=== PATIENT | female | born 1955 | race Caucasian/White ===

== ENCOUNTER 2022-10-29 09:10 | Inpatient (IN) ==
[2022-10-29] MEDS ORDERED: ONDANSETRON 4 MG/2 ML VIAL IV ONE (09:22)
[2022-10-29] MEDS ORDERED: LACTATED RINGERS 1,000 ML IV ONE (09:22)
[2022-10-29 09:55] LABS: POC Calcium, Ionized 0.98 (1.16-1.32); POC Creatinine 0.8 (0.6-1.2); POC Potassium 2.9 (3.3-5.1)
[2022-10-29] MEDS ORDERED: METOCLOPRAMIDE 10 MG/2 ML VIAL IV ONE (10:10)
[2022-10-29] MEDS ORDERED: diphenhydrAMINE 50 MG/ML VIAL IV ONE (10:10)
--- NOTE | 2022-10-29 10:12 | Emergency Department Note ---
HPI General Chief complaint: Nausea/Vomiting/Diarrhea Stated complaint: N, V Time Seen by Provider: 10/29/22 09:13 Source: patient and family Mode of arrival: ambulatory Limitations: no limitations History of Present Illness HPI Narrative: Narrative: Patient presents to the emergency department with nausea and vomiting she states her symptoms have been going on for 3 to 4 days. She was actually seen at [facility] 4 days ago for a cough she was found to have a urinary tract infection and bronchitis she was started on prednisone, Macrobid and azithromycin. Patient states today she began nauseous she was unable to keep down her antibiotics. She states that she has been trying to sip on water throughout her illness. She does have some associated diffuse abdominal pain along with headache as well. Her symptoms did start about 10 days ago she thought it was just a viral when it had not improved she went to the [facility] the other day. She has not been having any fevers. Related Data Home Medications Medication Instructions Recorded Confirmed aspirin 325 mg tablet 325 mg PO QDAY 10/25/22 10/29/22 atenolol 50 mg tablet 50 mg PO QDAY 10/25/22 10/29/22 atorvastatin 40 mg tablet 40 mg PO QHS 10/25/22 10/29/22 cholecalciferol (vitamin D3) 50 50 mcg PO QDAY 10/25/22 10/29/22 mcg (2,000 unit) capsule losartan 100 mg tablet 100 mg PO QDAY 10/25/22 10/29/22 multivitamin with minerals-folic 2 tab PO QDAY 10/25/22 10/29/22 acid 200 mcg chewable tablet (Women's Multivitamin Gummies) omega 7-hwt-ecr-fish oil 60 mg-90 1 cap PO QDAY 10/25/22 10/29/22 mg-500 mg capsule (Fish Oil) triamterene 37.5 1 tab PO QDAY 10/25/22 10/29/22 mg-hydrochlorothiazide 25 mg tablet Lactobacillus 1 cap PO QAM 10/29/22 10/29/22 acidophilus-Bifidobac.animalis 2.5 billion cell capsule (Daily Probiotic) nitrofurantoin 1 cap PO BID 10/29/22 10/29/22 monohydrate/macrocrystals 100 mg capsule Previous Rx's Medication Instructions Recorded azithromycin 250 mg tablet See Rx Instructions PO Q24H #6 tabs 10/25/22 nitrofurantoin 1 cap PO Q12H IFAbx Urinary Tract 10/25/22 monohydrate/macrocrystals 100 mg Infection 5 days #10 caps capsule (Macrobid) prednisone 10 mg tablet See Rx Instructions PO ONCE #15 10/25/22 tabs Allergies Allergy/AdvReac Type Severity Reaction Status Date / Time No Known Drug Allergies Allergy Unverified 10/25/22 15:01 Review of Systems ROS ROS Narrative: Narrative: All systems ED: reviewed and negative except as stated. PFS Narrative Patient History Narrative: Narrative: Medical/Surgical/Family History All Active Problems (Updated 10/29/22 @ 13:38 by Santiago Ledezma MD) Hyponatremia (Chronic) Mixed dyslipidemia (Acute) Essential hypertension (Acute) UTI (urinary tract infection) (Acute) Acute bronchitis (Acute) Hypokalemia (Acute) Acute hyponatremia (Acute) Social History Smoking Status: Never smoker Exam Narrative Narrative: Narrative: Vital signs noted General: Awake. Alert. No distress. HEENT: NCAT Neck: Supple, trachea midline Cardiovascular: RRR. No murmur. No rubs. No gallops. Respiratory: No respiratory distress. Breath sounds equal. Lungs clear. Gastrointestinal: Soft. Mild tenderness to diffuse palpation Musculoskeletal: No pain. No soft tissue swelling. Good ROM. No signs injury Skin: Warm. Dry. No rash Neurologic: Alert and oriented x3 moves all extremities equally and fully, speech is fluent face is symmetric General Limitations: no limitations Course Vital Signs Vital signs: Vital Signs Temperature 96.6 F L 10/29/22 09:12 Pulse Rate 57 L 10/29/22 09:12 Respiratory Rate 18 10/29/22 09:12 Blood Pressure 139/65 10/29/22 09:12 Pulse Oximetry (%) 95 10/29/22 09:12 Oxygen Delivery Method Room Air 10/29/22 09:12 Temperature 97.8 F 10/30/22 04:18 Pulse Rate 55 L 10/30/22 05:56 Respiratory Rate 18 10/30/22 04:18 Blood Pressure 151/58 10/30/22 05:56 Pulse Oximetry (%) 95 10/30/22 05:56 Oxygen Delivery Method Room Air 10/30/22 05:56 MDM MDM Narrative Medical decision making narrative: Narrative: Patient presents to the emergency department with abdominal pain nausea vomiting continued cough. She was seen at [facility] 4 days ago she was started on prednisone, Macrobid and Augmentin. Patient's initial labs are concerning for hyponatremia of 112 in the setting of a normal blood glucose. I did have this rechecked to make sure there was not lab abnormality. Patient was given Zofran for her nausea, along with Reglan and Benadryl. Patient was given 1 L of NS. Patient's potassium is low as well is 3.0. Chloride is 74. Patient does not give the history that she has been vomiting enough to cause the significant electrolyte derangements. On exam she overall looks euvolemic. She is on hydrochlorothiazide-triamterene. This does not sound like polydipsia could be SIADH in the setting of recent viral infection? She denies significant alcohol use. I have added on serum osmolality and urine electrolytes and osmolality as well. Ionized calcium is also low 1.06. Chest x-ray per my interpretation does not show any acute cardiopulmonary process. Urinalysis does appear that infection is clearing. Patient will be admitted to the hospitalist for hypona tremia. Lab Data 10/30/22 05:51 10/30/22 05:51 Labs: Lab Results 10/29/22 10/29/22 10/29/22 Range/Units 09:20 09:20 09:45 WBC (4.5-11.0) K/mcL RBC (3.59-5.38) M/mcL Hgb (11.2-15.7) g/dL Hct (34.1-44.9) % POC Hct (36-48) MCV (80.0-100.0) fL MCH (26.0-34.0) pg MCHC (31.0-36.0) g/dL RDW (11.5-14.5) % Plt Count (140-440) K/mcL MPV (8.8-12.5) fL Immature Gran % (Auto) (0.0-0.5) % Neut % (Auto) (38.0-78.0) % Lymph % (Auto) (15.5-49.0) % [place] % (Auto) (1.0-12.0) % Eos % (Auto) (0.0-7.0) % Baso % (Auto) (0.0-2.0) % Lymph # (Auto) (1.50-4.80) K/mcL [place] # (Auto) (0.10-0.90) K/mcL Eos # (Auto) (0.00-0.70) K/mcL Baso # (Auto) (0.00-0.30) K/mcL Immature Gran # (0.00-0.05) K/mcl Absolute Neutrophils (1.80-8.00) K/mcL POC Sodium (133-145) Sodium (133-145) mmol/L POC Potassium (3.3-5.1) POC Chloride (96-108) POC Total CO2 (22-30) POC BUN (6-20) POC Creatinine (0.6-1.2) POC Glucose (70-105) Osmolality (280-300) mOSM/kg POC WB Ioniz Calcium (1.16-1.32) Magnesium (1.6-2.5) mg/dL Lipase 121 H (7-60) U/L Urine Color Yellow Urine Appearance Hazy A (Clear) Urine pH 5.0 (5.0-9.0) Ur Specific [place] 1.024 (1.000-1.035) Urine Protein >=500 A (Negative) mg/dL Urine Glucose (UA) Negative (Negative) mg/dL Urine Ketones Negative (Negative) mg/dL Urine Occult Blood 0.03 (Negative) mg/dL Urine Nitrate Negative (Negative) Urine Bilirubin Negative (Negative) mg/dL Urine Urobilinogen Negative mg/dL Ur Leukocyte Esterase Negative (Negative) /uL Urine RBC 7 H (0-3) /hpf Urine WBC 10 H (0-4) /hpf Ur Squamous Epith Cells 2 (0-4) /hpf Ur Transition Epith Cell < 1 (0-2) /hpf Urine Bacteria Few A (0) /hpf Hyaline Casts 25 H (0-2) /lph Urine Mucus Many A (None) /hpf Ur Culture Indicated? yes Urine Osmolality 551 (80-1000) mOSM/kg Ur Random Sodium 15 mmol/L 10/29/22 10/29/22 10/29/22 Range/Units 09:45 09:51 10:24 WBC 11.7 H (4.5-11.0) K/mcL RBC 4.61 (3.59-5.38) M/mcL Hgb 14.7 (11.2-15.7) g/dL Hct 38.6 (34.1-44.9) % POC Hct 44.0 (36-48) MCV 83.7 (80.0-100.0) fL MCH 31.9 (26.0-34.0) pg MCHC 35.0 (31.0-36.0) g/dL RDW 11.6 (11.5-14.5) % Plt Count 253 (140-440) K/mcL MPV 10.7 (8.8-12.5) fL Immature Gran % (Auto) 0.7 H (0.0-0.5) % Neut % (Auto) 70.4 (38.0-78.0) % Lymph % (Auto) 14.6 L (15.5-49.0) % [place] % (Auto) 13.9 H (1.0-12.0) % Eos % (Auto) 0.3 (0.0-7.0) % Baso % (Auto) 0.1 (0.0-2.0) % Lymph # (Auto) 1.71 (1.50-4.80) K/mcL [place] # (Auto) 1.63 H (0.10-0.90) K/mcL Eos # (Auto) 0.04 (0.00-0.70) K/mcL Baso # (Auto) 0.01 (0.00-0.30) K/mcL Immature Gran # 0.08 H (0.00-0.05) K/mcl Absolute Neutrophils 8.23 H (1.80-8.00) K/mcL POC Sodium 112 L* (133-145) Sodium 107 L* (133-145) mmol/L POC Potassium 2.9 L* (3.3-5.1) POC Chloride 75 L (96-108) POC Total CO2 26.0 (22-30) POC BUN 16 (6-20) POC Creatinine 0.8 (0.6-1.2) POC Glucose 124 H (70-105) Osmolality (280-300) mOSM/kg POC WB Ioniz Calcium 0.98 L (1.16-1.32) Magnesium (1.6-2.5) mg/dL Lipase (7-60) U/L Urine Color Urine Appearance (Clear) Urine pH (5.0-9.0) Ur Specific [place] (1.000-1.035) Urine Protein (Negative) mg/dL Urine Glucose (UA) (Negative) mg/dL Urine Ketones (Negative) mg/dL Urine Occult Blood (Negative) mg/dL Urine Nitrate (Negative) Urine Bilirubin (Negative) mg/dL Urine Urobilinogen mg/dL Ur Leukocyte Esterase (Negative) /uL Urine RBC (0-3) /hpf Urine WBC (0-4) /hpf Ur Squamous Epith Cells (0-4) /hpf Ur Transition Epith Cell (0-2) /hpf Urine Bacteria (0) /hpf Hyaline Casts (0-2) /lph Urine Mucus (None) /hpf Ur Culture Indicated? Urine Osmolality (80-1000) mOSM/kg Ur Random Sodium mmol/L 10/29/22 10/29/22 10/29/22 Range/Units 10:27 10:28 10:28 WBC (4.5-11.0) K/mcL RBC (3.59-5.38) M/mcL Hgb (11.2-15.7) g/dL Hct (34.1-44.9) % POC Hct 44.0 (36-48) MCV (80.0-100.0) fL MCH (26.0-34.0) pg MCHC (31.0-36.0) g/dL RDW (11.5-14.5) % Plt Count (140-440) K/mcL MPV (8.8-12.5) fL Immature Gran % (Auto) (0.0-0.5) % Neut % (Auto) (38.0-78.0) % Lymph % (Auto) (15.5-49.0) % [place] % (Auto) (1.0-12.0) % Eos % (Auto) (0.0-7.0) % Baso % (Auto) (0.0-2.0) % Lymph # (Auto) (1.50-4.80) K/mcL [place] # (Auto) (0.10-0.90) K/mcL Eos # (Auto) (0.00-0.70) K/mcL Baso # (Auto) (0.00-0.30) K/mcL Immature Gran # (0.00-0.05) K/mcl Absolute Neutrophils (1.80-8.00) K/mcL POC Sodium 111 L* (133-145) Sodium (133-145) mmol/L POC Potassium 3.0 L (3.3-5.1) POC Chloride 74 L (96-108) POC Total CO2 26.0 (22-30) POC BUN 15 (6-20) POC Creatinine 0.8 (0.6-1.2) POC Glucose 121 H (70-105) Osmolality 233 L (280-300) mOSM/kg POC WB Ioniz Calcium 1.06 L (1.16-1.32) Magnesium 1.9 (1.6-2.5) mg/dL Lipase (7-60) U/L Urine Color Urine Appearance (Clear) Urine pH (5.0-9.0) Ur Specific [place] (1.000-1.035) Urine Protein (Negative) mg/dL Urine Glucose (UA) (Negative) mg/dL Urine Ketones (Negative) mg/dL Urine Occult Blood (Negative) mg/dL Urine Nitrate (Negative) Urine Bilirubin (Negative) mg/dL Urine Urobilinogen mg/dL Ur Leukocyte Esterase (Negative) /uL Urine RBC (0-3) /hpf Urine WBC (0-4) /hpf Ur Squamous Epith Cells (0-4) /hpf Ur Transition Epith Cell (0-2) /hpf Urine Bacteria (0) /hpf Hyaline Casts (0-2) /lph Urine Mucus (None) /hpf Ur Culture Indicated? Urine Osmolality (80-1000) mOSM/kg Ur Random Sodium mmol/L CC TIME Critical Care Time Critical Care Time: Yes Total Critical Care Time: 35 Discharge Plan Patient/Caregiver Discharge Instructions Pt seen by SENIOR COURTROOM CLERK/PA only: No Clinical Impression: Acute hyponatremia Patient Disposition: Xfer As Inpt ([facility]) Discharge Date/Time: 10/29/22 13:35
[2022-10-29] MEDS ORDERED: 0.9 % SODIUM CHLORIDE 1,000 ML IV ONE (10:29)
[2022-10-29 10:32] LABS: POC Calcium, Ionized 1.06 (1.16-1.32); POC Creatinine 0.8 (0.6-1.2)
[2022-10-29 10:54] LABS: Appearance,Urine HAZY (Clear); Bacteria,Urine FEW /hpf (0); Bilirubin,Urine Negative (Negative); Color,Urine YELLOW; Culture Indicated,Urine yes; Glucose,Urine (UA) Negative (Negative); Ketones,Urine Negative (Negative); Leukocyte Esterase,Urine Negative /uL (Negative); Mucus,Urine MANY /hpf; Nitrate,Urine Negative (Negative); Protein,Urine >=500 mg/dL (Negative); Specific Gravity,Urine 1.024 (1.000-1.035); Urine Blood 0.03 mg/dL (Negative); Urine Hyaline Cast 25 /lph (0-2); Urine RBC 7 /hpf (0-3); Urine Squamous Epithelial Cell 2 /hpf (0-4); Urine Transitional Epi Cells < 1 /hpf (0-2); Urine WBC 10 /hpf (0-4); Urobilinogen,Urine Negative
[2022-10-29 11:47] LABS: Sodium, Urine Random 15 mmol/L
--- NOTE | 2022-10-29 12:04 | XRay Report ---
CLINICAL INFORMATION: Worsening cough COMPARISON: 10/25/2022 TECHNIQUE: Portable FINDINGS: The heart size, mediastinum and pulmonary vessels are unremarkable. Lung volumes are mildly elevated is minimal wall thickening of the bronchi suggesting bronchitis. Minor bibasilar atelectasis noted.. There are no effusions. The bones and soft tissues are within normal limits. IMPRESSION: Findings compatible with bronchitis. Minor bibasilar atelectasis Interpreted and Authenticated by: Mert Patricia 10/29/22
[2022-10-29 12:05] LABS: Basophils # (Auto) 0.01 K/mcL (0.00-0.30); Basophils % (Auto) 0.1 % (0.0-2.0); Eosinophils # (Auto) 0.04 K/mcL (0.00-0.70); Eosinophils % (Auto) 0.3 % (0.0-7.0); Hematocrit 38.6 % (34.1-44.9); Hemoglobin 14.7 g/dL (11.2-15.7); Lymphocytes # (Auto) 1.71 K/mcL (1.50-4.80); Lymphocytes % (Auto) 14.6 % (15.5-49.0); Mean Cell Volume 83.7 fL (80.0-100.0); Mean Platelet Volume 10.7 fL (8.8-12.5); Monocytes # (Auto) 1.63 K/mcL (0.10-0.90); Monocytes % (Auto) 13.9 % (1.0-12.0); Neutrophils % (Auto) 70.4 % (38.0-78.0); Platelet Count 253 K/mcL (140-440); RBC 4.61 M/mcL (3.59-5.38); Red Cell Distribution Width 11.6 % (11.5-14.5); WBC 11.7 K/mcL (4.5-11.0)
[2022-10-29] MEDS ORDERED: PROCHLORPERAZINE 10 MG/2 ML VIAL IV PRN (12:05)
[2022-10-29] MEDS ORDERED: hydrALAZINE 20 MG/ML VIAL IV PRN (12:05)
[2022-10-29] MEDS ORDERED: LOPERAMIDE 2 MG CAPSULE PO PRN (12:06)
[2022-10-29] MEDS ORDERED: POTASSIUM CHLORIDE 20 MEQ in DEXTROSE 5% IN WATER 250 ML IV SCH (12:06)
[2022-10-29 12:10] LABS: Osmolality,Urine 551 mOSM/kg (80-1000)
--- NOTE | 2022-10-29 12:15 | Internal Med History&Physical ---
HPI History of Present Illness Patient information: Note initiated : 10/29/22 at 12:06 pm Service Date, if different from initiated Date: [] Patient: Joaquina Paredes a 66 y/o F admitted on for N, V. Chief Complaint: [nausea, vomiting, general weakness] Chief complaint: nausea, vomiting, general weakness History of present illness: Ms. Paredes is a 66 year old F history of essential hypertensions, dyslipidemia, recently diagnosed urinary tract infections and bronchitis, presenting with 4- day history of nausea vomiting and general weakness. She was recently being diagnosed with urinary tract infections and bronchitis at the urgent care center and was being prescribed with Macrobid, prednisone, and azithromycin respectively. 4 days ago, she started to experience nausea, vomiting, and general body weakness. Of note, her GI symptoms of nausea vomiting onset was prior to the start of the antibiotics. She has been taking triamterene/hydrochlorothiazide for blood pressure control and she has been taking it for long time and there is no recent dosage changes. Vital signs at ED presentations within normal limits. Labs significant for serum sodium level 111, and serum potassium level 3.0. Magnesium level, serum and urine osmolality, and urine sodium level pending. Urinalysis negative leukocyte esterase and negative nitrates. Chest x-ray results pending. Admission request is called for symptomatic hyponatremia and hypokalemia. Constitutional Constitutional: Present excessive sweating and weakness; Absent chills, fatigue or fever(s) EENT Eyes: Absent blurry vision, change in vision, loss of vision or other visual disturbances Ears: Absent decreased hearing or tinnitus Nose, mouth and throat: Absent abnormal hearing, dry mouth, headache(s), nasal congestion or sore throat Cardiovascular Cardiovascular: Absent chest pain, chest pain at rest, edema, irregular heart rhythm or palpatations Respiratory Respiratory: Present cough; Absent dyspnea, wheezing or excessive phlegm production Gastrointestinal Gastrointestinal: Present nausea and vomiting; Absent abdominal pain, constipation or diarrhea Musculoskeletal Musculoskeletal: Absent back pain, deformity, limited range of motion, muscle cramps, muscle weakness or numbness Integumentary Integumentary: Absent lesions, rash or wounds Neurological Neurological: Absent focal weakness, headache(s) or numbness Psychiatric Psychiatric: Absent anxiety, depression or hallucinations PFSH PFSH All Active Problems (Updated 10/29/22 @ 12:13 by Richard Gaytan MD) Mixed dyslipidemia (Acute) Essential hypertension (Acute) UTI (urinary tract infection) (Acute) Acute bronchitis (Acute) Hypokalemia (Acute) Acute hyponatremia (Acute) Social History smoking status: Never smoker MEDS/ALLERGIES Home Medications and Allergies Home Medications Medication Instructions Recorded Confirmed Type aspirin 325 mg tablet 325 mg PO QDAY 10/25/22 10/25/22 History atenolol 50 mg tablet 50 mg PO QDAY 10/25/22 10/25/22 History atorvastatin 40 mg tablet 40 mg PO QDAY 10/25/22 10/25/22 History azithromycin 250 mg tablet See Rx Instructions PO Q24H #6 tabs 10/25/22 10/25/22 Rx cholecalciferol (vitamin D3) 50 50 mcg PO QDAY 10/25/22 10/25/22 History mcg (2,000 unit) capsule losartan 100 mg tablet 100 mg PO QDAY 10/25/22 10/25/22 History multivitamin with minerals-folic tab PO QDAY 10/25/22 10/25/22 History acid 200 mcg chewable tablet (Women's Multivitamin Gummies) nitrofurantoin 1 cap PO Q12H IFAbx Urinary Tract 10/25/22 10/25/22 Rx monohydrate/macrocrystals 100 mg Infection 5 days #10 caps capsule (Macrobid) omega 5-vvs-vby-fish oil 60 mg-90 1 cap PO QDAY 10/25/22 10/25/22 History mg-500 mg capsule (Fish Oil) prednisone 10 mg tablet See Rx Instructions PO ONCE #15 10/25/22 10/25/22 Rx tabs triamterene 37.5 1 tab PO QDAY 10/25/22 10/25/22 History mg-hydrochlorothiazide 25 mg tablet Allergies Allergy/AdvReac Type Severity Reaction Status Date / Time No Known Drug Allergies Allergy Unverified 10/25/22 15:01 EXAM Constitutional Vitals: Temp Pulse Resp BP Pulse Ox O2 Del Method 35.9 C L 60 18 149/68 97 Room Air 10/29/22 09:12 10/29/22 11:37 10/29/22 09:12 10/29/22 11:12 10/29/22 11:37 04/26/23 09:12 General appearance: cooperative and no acute distress Head Head exam: Present atraumatic and normocephalic Eye Eye exam: Present EOMI and PERRL ENT ENT exam: Present mucous membranes moist, normal exam and normal external ear exam Neck Neck exam: Present normal inspection; Absent lymphadenopathy, tenderness or thyromegaly Respiratory Respiratory exam: Absent accessory muscle use, respiratory distress or wheezes Cardiovascular Cardiovascular exam: Present normal rate and rhythm; Absent JVD GI/Abdominal GI/Abdominal exam: Present normal bowel sounds and soft; Absent organomegaly or tenderness Extremities Exam Extremities exam: Present full ROM, normal capillary refill and normal inspection; Absent tenderness Neurological Exam Neurological exam: Present alert, CN II-XII intact and oriented X3; Absent motor sensory deficit Psychiatric Psychiatric exam: Present normal affect and normal mood; Absent anxious or depressed Skin Skin exam: Present dry and intact DATA Data Completed and Pending Labs: Labs from last 24 hours 10/29/22 10/29/22 10/29/22 10:28 10:28 10:27 WBC RBC Hgb Hct POC Hct 44.0 MCV MCH MCHC RDW Plt Count MPV Immature Gran % (Auto) Neut % (Auto) Lymph % (Auto) [place] % (Auto) Eos % (Auto) Baso % (Auto) Lymph # (Auto) [place] # (Auto) Eos # (Auto) Baso # (Auto) Immature Gran # Absolute Neutrophils POC Sodium 111 L* Sodium POC Potassium 3.0 L POC Chloride 74 L POC Total CO2 26.0 POC BUN 15 POC Creatinine 0.8 POC Glucose 121 H Osmolality Pending POC WB Ioniz Calcium 1.06 L Magnesium Pending Lipase Urine Color Urine Appearance Urine pH Ur Specific [place] Urine Protein Urine Glucose (UA) Urine Ketones Urine Occult Blood Urine Nitrate Urine Bilirubin Urine Urobilinogen Ur Leukocyte Esterase Urine RBC Urine WBC Ur Squamous Epith Cells Ur Transition Epith Cell Urine Bacteria Hyaline Casts Urine Mucus Ur Culture Indicated? Urine Osmolality Ur Random Sodium 10/29/22 10/29/22 10/29/22 10:24 09:51 09:45 WBC 11.7 H RBC 4.61 Hgb 14.7 Hct 38.6 POC Hct 44.0 MCV 83.7 MCH 31.9 MCHC 35.0 RDW 11.6 Plt Count 253 MPV 10.7 Immature Gran % (Auto) 0.7 H Neut % (Auto) 70.4 Lymph % (Auto) 14.6 L [place] % (Auto) 13.9 H Eos % (Auto) 0.3 Baso % (Auto) 0.1 Lymph # (Auto) 1.71 [place] # (Auto) 1.63 H Eos # (Auto) 0.04 Baso # (Auto) 0.01 Immature Gran # 0.08 H Absolute Neutrophils 8.23 H POC Sodium 112 L* Sodium Pending POC Potassium 2.9 L* POC Chloride 75 L POC Total CO2 26.0 POC BUN 16 POC Creatinine 0.8 POC Glucose 124 H Osmolality POC WB Ioniz Calcium 0.98 L Magnesium Lipase Urine Color Urine Appearance Urine pH Ur Specific [place] Urine Protein Urine Glucose (UA) Urine Ketones Urine Occult Blood Urine Nitrate Urine Bilirubin Urine Urobilinogen Ur Leukocyte Esterase Urine RBC Urine WBC Ur Squamous Epith Cells Ur Transition Epith Cell Urine Bacteria Hyaline Casts Urine Mucus Ur Culture Indicated? Urine Osmolality Ur Random Sodium 10/29/22 10/29/22 10/29/22 09:45 09:20 09:20 WBC RBC Hgb Hct POC Hct MCV MCH MCHC RDW Plt Count MPV Immature Gran % (Auto) Neut % (Auto) Lymph % (Auto) [place] % (Auto) Eos % (Auto) Baso % (Auto) Lymph # (Auto) [place] # (Auto) Eos # (Auto) Baso # (Auto) Immature Gran # Absolute Neutrophils POC Sodium Sodium POC Potassium POC Chloride POC Total CO2 POC BUN POC Creatinine POC Glucose Osmolality POC WB Ioniz Calcium Magnesium Lipase 121 H Urine Color Yellow Urine Appearance Hazy A Urine pH 5.0 Ur Specific [place] 1.024 Urine Protein >=500 A Urine Glucose (UA) Negative Urine Ketones Negative Urine Occult Blood 0.03 Urine Nitrate Negative Urine Bilirubin Negative Urine Urobilinogen Negative Ur Leukocyte Esterase Negative Urine RBC 7 H Urine WBC 10 H Ur Squamous Epith Cells 2 Ur Transition Epith Cell < 1 Urine Bacteria Few A Hyaline Casts 25 H Urine Mucus Many A Ur Culture Indicated? yes Urine Osmolality Pending Ur Random Sodium 15 A/P Assessment and plan (1) Acute hyponatremia: Status: Acute (2) Hypokalemia: Status: Acute (3) Acute bronchitis: Status: Acute (4) UTI (urinary tract infection): Status: Acute (5) Essential hypertension: Status: Acute (6) Mixed dyslipidemia: Status: Acute Narrative A/P Narrative: Assessment and Plans: 1. Symptomatic hyponatremia, likely acute: Inpatient ICU with telemetry Consult Dr. Ledezma recs. appreciated Stop Triamterene/HCTZ Zofran Reglan Compazine Imodium s/p 1L NS bolus given in the ED, to be followed by NS@75cc/hr BMP every 6 hours, goals of corrections 8-10 points in the first 24 hours to avoid overcorrection's with associated [employer]INE consequences suggest central pontine myelinolysis Serum and urine osmolality Urine sodium TSH Cortisol, random and AM 2. Hypokalemia: Potassium chloride IV rider Serial BMP to trend serum potassium level and will repeat replacement as needed Also check serum magnesium level and will be placed if indicated 3. h/o recent UTI: Will finish nitrofurantoin 4. History of recent acute bronchitis: Will finish azithromycin and prednisone 5. Essential hypertensions: Stop Triamterene/HCTZ Continue Atenolol Continue Losartan Hydralazine 10mg IV q4-6hr PRN SBP>=180 and/or DBP>=110mmHg 6. Mixed dyslipidemia: Continue statin therapy GI ppx: not currently indicated DVT ppx: Lovenox Code status: Full Prognosis: guarded Disposition: inpatient ICU Critical Care Time: 60min Time Spent With Patient Time: Total time spent is greater than 50% in coordination of care (as documented) at patient's floor/unit and/or counseling patient: Initial: Total time with patient: 55 - 74 minutes Critical Care Time: Yes Total Critical Care Time: 60
[2022-10-29] MEDS ORDERED: SODIUM CHLORIDE 1 GM TABLET PO SCH (13:34)
--- NOTE | 2022-10-29 13:41 | Nephrology Consult Note ---
HPI Date of Consult Consult Date: 10/29/22 Requesting physician: Richard Gaytan Primary Care Provider: Jessica Lau Consult Narrative Chief complaint: Nausea Reason for consult: Hyponatremia History of present illness: Joaquina Paredes is a 66-year-old female with hypertension presented to ED for nausea and vomiting on 10/29/22. She was in her usual state of health until September 2022 when she started to have a cough and sputum. She was seen in urgent care on 10/25/22. She was diagnosed with bronchitis and UTI. She was prescribed Nitrofurantoin and Azithromycin. She did not have blood work. Her symptoms did not improve, she had nausea and vomiting and was presented to ED. In ED, her workup was significant for hyponatremia. She received 1 L NS and 1 L LR. Admission requested. cc:: CC: Constitutional Constitutional: Present headache(s) and lethargy EENT Nose, mouth and throat: Absent nasal congestion or sore throat Cardiovascular Cardiovascular: Absent chest pain or palpatations Respiratory Respiratory: Present cough; Absent wheezing Gastrointestinal Gastrointestinal: Present nausea and vomiting Genitourinary Genitourinary: Absent dysuria or hematuria Integumentary Integumentary: Absent rash or wounds Neurological Neurological: Present headache(s); Absent confusion Psychiatric Psychiatric: Absent anxiety or panic attacks Hematologic/Lymphatic Hematologic/Lymphatic: Absent easy bleeding or easy bruising Allergic/Immunologic Allergic/Immunologic: Absent tongue swelling or uticaria PFSH PFSH All Active Problems (Updated 10/29/22 @ 13:38 by Santiago Ledezma MD) Hyponatremia (Chronic) Mixed dyslipidemia (Acute) Essential hypertension (Acute) UTI (urinary tract infection) (Acute) Acute bronchitis (Acute) Hypokalemia (Acute) Acute hyponatremia (Acute) Social History smoking status: Never smoker MEDS/ALLERGIES Home Medications and Allergies Home Medications Medication Instructions Recorded Confirmed Type aspirin 325 mg tablet 325 mg PO QDAY 10/25/22 10/25/22 History atenolol 50 mg tablet 50 mg PO QDAY 10/25/22 10/25/22 History atorvastatin 40 mg tablet 40 mg PO QDAY 10/25/22 10/25/22 History azithromycin 250 mg tablet See Rx Instructions PO Q24H #6 tabs 10/25/22 10/25/22 Rx cholecalciferol (vitamin D3) 50 50 mcg PO QDAY 10/25/22 10/25/22 History mcg (2,000 unit) capsule losartan 100 mg tablet 100 mg PO QDAY 10/25/22 10/25/22 History multivitamin with minerals-folic tab PO QDAY 10/25/22 10/25/22 History acid 200 mcg chewable tablet (Women's Multivitamin Gummies) nitrofurantoin 1 cap PO Q12H IFAbx Urinary Tract 10/25/22 10/25/22 Rx monohydrate/macrocrystals 100 mg Infection 5 days #10 caps capsule (Macrobid) omega 2-beb-ipl-fish oil 60 mg-90 1 cap PO QDAY 10/25/22 10/25/22 History mg-500 mg capsule (Fish Oil) prednisone 10 mg tablet See Rx Instructions PO ONCE #15 10/25/22 10/25/22 Rx tabs triamterene 37.5 1 tab PO QDAY 10/25/22 10/25/22 History mg-hydrochlorothiazide 25 mg tablet Allergies Allergy/AdvReac Type Severity Reaction Status Date / Time No Known Drug Allergies Allergy Unverified 10/25/22 15:01 Physical Examination Vital Signs Vital signs: Temp Pulse Resp BP Pulse Ox O2 Del Method 96.6 F L 64 18 158/78 98 Room Air 10/29/22 09:12 10/29/22 12:21 10/29/22 09:12 10/29/22 12:21 10/29/22 12:21 10/29/22 09:12 General Appearance General appearance: well-developed, well-nourished and appears started age EENT EENT: mucous membranes moist Neck Neck: no JVD Respiratory Respiratory: clear Cardiovascular Cardiology: no edema Gastrointestinal Gastrointestinal: no tenderness Integumentary Integumentary: warm and dry Neurologic Neurologic: no focal deficit and alert and oriented x3 Musculoskeletal Musculoskeletal: no deformities Psychiatric Psychiatric: mood/affect appropriate and cooperative Results Lab Results 10/29/22 09:45 10/29/22 10:24 Lab results: Most recent lab results Magnesium 1.9 mg/dL (1.6-2.5) 10/29/22 10:27 A/P Assessment and plan (1) Hyponatremia: Assessment and plan: Joaquina Paredes is a 66-year-old female with hypertension presented to ED for nausea and vomiting on 10/29/22. She was in her usual state of health until September 2022 when she started to have a cough and sputum. She was seen in urgent care on 10/25/22. She was diagnosed with bronchitis and UTI. She was prescribed Nitrofurantoin and Azithromycin. She did not have blood work. Her symptoms did not improve, she had nausea and vomiting and was presented to ED. In ED, her workup was significant for hyponatremia. She received 1 L NS and 1 L LR. Admission requested. Nephrology consultation was requested for hyponatremia. Hyponatremia, present on arrival. It is hypoosmolar, euvolemic, severe (<120), likely chronic (>48 hours), symptomatic (nausea, vomiting, headache, but no confusion, delirium or seizures), associated with gait instability, but no falls, associated with medications (thiazide diuretic), not consistent with SIADH (urine sodium < 40). Work up: Labs on 10/29/22: Serum osmolality, serum sodium, urine osmolality 551, urine sodium 15. Urinalysis on 10/29/22: Yellow, hazy, pH 5.0, SG 1.024, protein >500, blood 0.03, leukocyte esterase negative, urine culture pending. CXR on 10/29/22: Findings compatible with bronchitis. Minor bibasilar atelectasis. Progress: Serum Sodium: 10/29/22 10:24: 107 RECOMMENDATIONS AND PLAN: Hold triamterene 37.5 mg-hydrochlorothiazide 25 mg. Sodium Chloride 1 gram by mouth twice daily, first dose now. Hypertonic (3% saline) recommended only for acute (<48 hours), severe, symptomatic patients. Monitor serum sodium frequently. Target serum sodium elevation: <4-6 mEq/L/24 hours. Goal serum sodium of >130 mEq/L. Status: Chronic Time Spent With Patient Time: Total time spent is greater than 50% in coordination of care (as documented) at patient's floor/unit and/or counseling patient:
[2022-10-29] MEDS ORDERED: 0.9 % SODIUM CHLORIDE 1,000 ML IV SCH (13:51)
[2022-10-29] MEDS ORDERED: ONDANSETRON 4 MG/2 ML VIAL IV PRN (13:51)
[2022-10-29] MEDS ORDERED: IPRATROPIUM/ALBUTEROL 3 ML AMPUL.NEB NEB PRN (13:51)
[2022-10-29] MEDS ORDERED: METOCLOPRAMIDE 10 MG/2 ML VIAL IV PRN (13:51)
[2022-10-29] MEDS: 0.9 % SODIUM CHLORIDE 10 ML SYRINGE IV SCH ×2 (13:57→20:34)
[2022-10-29] MEDS ORDERED: POTASSIUM CHLORIDE 20 MEQ TABLET PO ONE (14:42)
[2022-10-29 15:20] LABS: Thyroid Stimulating Hormone 3.68 uIU/mL (0.27-5.01)
[2022-10-29] MEDS ORDERED: SODIUM CHLORIDE 1 GM TABLET PO ONE (15:26)
[2022-10-29] MEDS ORDERED: predniSONE 10 MG TABLET PO SCH (16:15)
[2022-10-29] MEDS ORDERED: predniSONE 20 MG TABLET PO ONE (17:30)
[2022-10-29] MEDS: AZITHROMYCIN 250 MG TABLET PO SCH (17:34)
[2022-10-29 19:54] LABS: Blood Urea Nitrogen 13 mg/dL (8-23); Calcium 8.6 mg/dL (8.6-10.4); Carbon Dioxide 26 mmol/L (22-30); Chloride 77 mmol/L (96-108); Glomerular Filtration Rate 75; Glucose 113 mg/dL (70-105)
[2022-10-29] MEDS ORDERED: DESMOPRESSIN ACETATE 2 MCG in 0.9 % SODIUM CHLORIDE 50 ML SQ ONE (20:05)
[2022-10-29] MEDS: DOCUSATE SODIUM 100 MG CAPSULE PO SCH (20:26)
[2022-10-29] MEDS ORDERED: DESMOPRESSIN ACETATE 4 MCG/ML AMPUL SQ SCH (20:30)
[2022-10-29] MEDS: NITROFURANTOIN SR 100 MG CAPSULE PO SCH (20:34)
[2022-10-29] MEDS: ATORVASTATIN 40 MG TABLET PO SCH (20:34)
[2022-10-29] MEDS: traZODone HCL 50 MG TABLET PO PRN (21:08)
[2022-10-30] MEDS: 0.9 % SODIUM CHLORIDE 10 ML SYRINGE IV SCH ×3 (05:20→20:18)
[2022-10-30 06:49] LABS: Basophils # (Auto) 0.01 K/mcL (0.00-0.30); Basophils % (Auto) 0.1 % (0.0-2.0); Eosinophils # (Auto) 0.02 K/mcL (0.00-0.70); Eosinophils % (Auto) 0.2 % (0.0-7.0); Hematocrit 38.4 % (34.1-44.9); Hemoglobin 14.1 g/dL (11.2-15.7); Mean Cell Volume 85.7 fL (80.0-100.0); Mean Corpuscular HGB Conc 36.7 g/dL (31.0-36.0); Mean Platelet Volume 10.3 fL (8.8-12.5); Monocytes # (Auto) 1.23 K/mcL (0.10-0.90); Monocytes % (Auto) 11.6 % (1.0-12.0); Neutrophils % (Auto) 72.4 % (38.0-78.0); Platelet Count 249 K/mcL (140-440); RBC 4.48 M/mcL (3.59-5.38); Red Cell Distribution Width 11.8 % (11.5-14.5); WBC 10.6 K/mcL (4.5-11.0)
[2022-10-30 07:03] LABS: Blood Urea Nitrogen 14 mg/dL (8-23); Calcium 8.4 mg/dL (8.6-10.4); Carbon Dioxide 24 mmol/L (22-30); Chloride 79 mmol/L (96-108); Glomerular Filtration Rate 88; Glucose 103 mg/dL (70-105)
[2022-10-30] MEDS ORDERED: SODIUM CHLORIDE 0.9% SQ ONE (07:05)
[2022-10-30] MEDS ORDERED: DESMOPRESSIN ACETATE SQ ONE (07:05)
[2022-10-30] MEDS ORDERED: DESMOPRESSIN ACETATE 4 MCG/ML AMPUL SQ SCH (07:15)
--- NOTE | 2022-10-30 07:17 | Nephrology Progress Note ---
SUBJECTIVE Subjective Patient information: Note initiated : 10/30/22 at 7:08 am Patient: Joaquina Paredes 66 y/o F admitted on 10/29/22 for N, V. Chief Complaint: Nausea Pertinent ROS: Feels better Constitutional Vitals: Vital Signs Temp Pulse Resp BP Pulse Ox O2 Del Method 97.8 F 55 L 18 151/58 95 Room Air 10/30/22 04:18 10/30/22 05:56 10/30/22 04:18 10/30/22 05:56 10/30/22 05:56 10/30/22 05:56 Period Temp Pulse Resp BP Sys/Saucedo Pulse Ox O2 Del Method O2 Flow Rate Last 24 Hr 96.6 F-97.8 F 52-66 13- 106-172/50-92 90-98 Room Air-Room Air Intake and Output 10/29/22 10/30/22 10/30/22 19:59 03:59 11:59 Intake Total 1108 220 Output Total 600 1325 350 Balance 508 -1105 -350 Weight 161 lb 8 oz 161 lb 8 oz Intake & Output: Intake & Output 10/29/22 10/30/22 10/30/22 19:59 03:59 11:59 Intake Total 1108 220 Output Total 600 1325 350 Balance 508 -1105 -350 Weight 161 lb 8 oz 161 lb 8 oz Intake: IV 1108 Sodium Chloride 0.9% 1,000 ml @ 1019 75 mls/hr IV .[id number] SYED Rx#: [id number] Lactated Ringers 1,000 ml @ 0 Wide Open IV BOLUS ONE Rx#: [id number] Potassium Chloride 20 Meq In 89 Dextrose 5% in Water 250 ml @ 130 mls/hr IV ONCE SYED Rx#: [id number] Oral 220 Output: Void Amount 600 1325 350 Other: Urine Appearance Clear Clear Clear Urine Color Pale Pale Light Michelle # Voids 1 General appearance: cooperative and no acute distress Head Head exam: Present normal inspection Eye Eye exam: Present normal appearance ENT ENT exam: Present mucous membranes moist Respiratory Respiratory exam: Absent respiratory distress Cardiovascular Cardiovascular exam: Present normal rate and rhythm GI/Abdominal GI/Abdominal exam: Present soft; Absent tenderness Extremities Exam Extremities exam: Absent joint swelling or pedal edema Neurological Exam Neurological exam: Present alert and oriented X3 Psychiatric Psychiatric exam: Present normal affect and normal mood Skin Skin exam: Present warm; Absent rash A/P Assessment and plan (1) Hyponatremia: Assessment and plan: Joaquina Paredes is a 66-year-old female with hypertension presented to ED for nausea and vomiting on 10/29/22. She was in her usual state of health until September 2022 when she started to have a cough and sputum. She was seen in urgent care on 10/25/22. She was diagnosed with bronchitis and UTI. She was prescribed Nitrofurantoin and Azithromycin. She did not have blood work. Her symptoms did not improve, she had nausea and vomiting and was presented to ED. In ED, her workup was significant for hyponatremia. She received 1 L NS and 1 L LR. Admission requested. Nephrology consultation was requested for hyponatremia. Hyponatremia, present on arrival, hypoosmolar, euvolemic, severe (<120), likely chronic (>48 hours), symptomatic (nausea, vomiting, headache, but no confusion, delirium or seizures), associated with gait instability, but no falls, associated with medications (thiazide diuretic), not consistent with SIADH (urine sodium < 40). Work up: Labs on 10/29/22: Serum osmolality, serum sodium, urine osmolality 551, urine sodium 15. Urinalysis on 10/29/22: Yellow, hazy, pH 5.0, SG 1.024, protein >500, blood 0.03, leukocyte esterase negative, urine culture pending. CXR on 10/29/22: Findings compatible with bronchitis. Minor bibasilar atelectasis. Progress: Serum Sodium: 10/29/22 10:24: 107 10/29/22 14:04: 108 10/29/22 18:05: 114 10/29/22 22:10: 109 10/30/22 05:51: 114 Discussion: Serum sodium has a tendency to rise faster than desired. Desmopressin used to slow the correction. PLAN: Hold triamterene 37.5 mg-hydrochlorothiazide 25 mg. Desmopressin 1 mcg SC x 1. Next serum sodium at noon. Target serum sodium elevation: <4-6 mEq/L/24 hours. Goal serum sodium of >130 mEq/L. Status: Chronic Time Spent With Patient Time: Total time spent is greater than 50% in coordination of care (as documented) at patient's floor/unit and/or counseling patient:
[2022-10-30] MEDS: DOCUSATE SODIUM 100 MG CAPSULE PO SCH ×2 (07:39→20:00)
[2022-10-30] MEDS ORDERED: predniSONE 10 MG TABLET PO ONE (08:00)
[2022-10-30] MEDS: ENOXAPARIN 40 MG/0.4 ML SYRINGE SQ SCH (08:37)
[2022-10-30] MEDS: LOSARTAN 50 MG TABLET PO SCH (08:37)
[2022-10-30] MEDS: ASPIRIN 325 MG ENTERIC COATED TABLET PO SCH (08:37)
[2022-10-30] MEDS: FISH OIL 1,000 MG CAPSULE PO SCH (08:37)
[2022-10-30] MEDS: LACTOBACILLUS 1 CAPSULE PO SCH (08:37)
[2022-10-30] MEDS: VITAMIN D3 25 MCG TABLET PO SCH (08:38)
[2022-10-30] MEDS: MULTIVIT,THER IRON,CA,FA & MIN 1 TABLET PO SCH (08:38)
[2022-10-30] MEDS: ATENOLOL 50 MG TABLET PO SCH (08:38)
[2022-10-30] MEDS: NITROFURANTOIN SR 100 MG CAPSULE PO SCH (08:38)
[2022-10-30] MEDS: SENNOSIDES 1 TABLET PO SCH (08:38)
[2022-10-30] MEDS: AZITHROMYCIN 250 MG TABLET PO SCH (08:39)
--- NOTE | 2022-10-30 11:47 | Internal Med Progress Note ---
SUBJECTIVE Subjective Patient information: Note initiated : 10/30/22 at 11:42 am Service Date, if different from initiated Date: [] Patient: Joaquina Paredes a 66 y/o F admitted on 10/29/22 for N, V. Chief Complaint: [] Interval history: Ms. Paredes is a 66 year old F history of essential hypertensions, dyslipidemia, recently diagnosed urinary tract infections and bronchitis, presenting with 4- day history of nausea vomiting and general weakness. She was recently being diagnosed with urinary tract infections and bronchitis at the urgent care center and was being prescribed with Macrobid, prednisone, and azithromycin respectively. 4 days ago, she started to experience nausea, vomiting, and general body weakness. Of note, her GI symptoms of nausea vomiting onset was prior to the start of the antibiotics. She has been taking triamterene/hydroc hlorothiazide for blood pressure control and she has been taking it for long time and there is no recent dosage changes. Vital signs at ED presentations within normal limits. Labs significant for serum sodium level 111, and serum potassium level 3.0. Magnesium level, serum and urine osmolality, and urine sodium level pending. Urinalysis negative leukocyte esterase and negative nitrates. Chest x-ray results pending. Admission request is called for symptomatic hyponatremia and hypokalemia. 10/30: Dr. Ledezma recs. saline lock, gave patient NaCL oral supplement, DDAVP x2, and serial chemistry to trend serum sodium level. Continue to hold Triamterene-HCTZ. Patient is feeling a lot stronger today. No more nausea vomiting or diarrhea. Good appetite. Able to keep the food down. We will continue to work with Dr. Ledezma for the management of symptomatic hyponatremia. Overall condition g uarded. Keep the patient in ICU. Constitutional Vitals: Vital Signs Temp Pulse Resp BP Pulse Ox O2 Del Method 37.0 C 54 L 18 142/57 97 Room Air 10/30/22 08:01 10/30/22 07:01 10/30/22 11:16 10/30/22 11:16 10/30/22 08:01 10/30/22 11:16 Period Temp Pulse Resp BP Sys/Saucedo Pulse Ox O2 Del Method O2 Flow Rate Last 24 Hr 36.0 C-37.0 C 54-66 13-23 106-166/50-92 90-99 Room Air-Room Air Intake and Output 10/29/22 10/30/22 10/30/22 19:59 03:59 11:59 Intake Total 1108 220 480 Output Total 600 1325 850 Balance 508 1105 370 Weight 73.255 kg 73.255 kg Intake & Output: Intake & Output 10/29/22 10/30/22 10/30/22 19:59 03:59 11:59 Intake Total 1108 220 480 Output Total 600 1325 850 Balance 508 1105 370 Weight 73.255 kg 73.255 kg Intake: IV 1108 Sodium Chloride 0.9% 1,000 ml @ 1019 75 mls/hr IV .[id number] SYED Rx#: [id number] Lactated Ringers 1,000 ml @ 0 Wide Open IV BOLUS ONE Rx#: [id number] Potassium Chloride 20 Meq In 89 Dextrose 5% in Water 250 ml @ 130 mls/hr IV ONCE SY[facility] Rx#: [id number] Oral 220 480 Output: Void Amount 600 1325 850 Other: Meal Breakfast Percent of Meal Consumed 100% Feeding Ability Independent Urine Appearance Clear Clear Clear Urine Color Pale Pale Light Michelle # Voids 1 Head Head exam: Present atraumatic and normal inspection Eye Eye exam: Present normal appearance ENT ENT exam: Present mucous membranes moist, normal exam and normal external ear exam Neck Neck exam: Present normal inspection Respiratory Respiratory exam: Present normal respiratory exam Cardiovascular Cardiovascular exam: Present normal rate and rhythm GI/Abdominal GI/Abdominal exam: Present normal bowel sounds Back Exam Back exam: Present normal inspection Neurological Exam Neurological exam: Present alert and oriented X3 Skin Skin exam: Present intact and warm OBJ DATA Labs 10/30/22 05:51 10/30/22 05:51 Labs: Abnormal Lab Results 10/30/22 10/30/22 10/30/22 05:51 05:51 05:51 WBC MCHC 36.7 H Immature Gran % (Auto) 0.7 H Lymph % (Auto) 15.0 L Eagle % (Auto) Eagle # (Auto) 1.23 H Immature Gran # 0.07 H Absolute Neutrophils POC Sodium Sodium 114 L* POC Potassium POC Chloride Chloride 79 L Glucose POC Glucose Osmolality Calcium 8.4 L POC WB Ioniz Calcium Lipase Cortisol AM Sample 2.9 L Urine Appearance Urine Protein Urine RBC Urine WBC Urine Bacteria Hyaline Casts Urine Mucus 10/29/22 10/29/22 10/29/22 22:10 18:05 14:04 WBC MCHC Immature Gran % (Auto) Lymph % (Auto) Eagle % (Auto) Eagle # (Auto) Immature Gran # Absolute Neutrophils POC Sodium Sodium 109 L* 114 L* 108 L* POC Potassium POC Chloride Chloride 77 L Glucose 113 H POC Glucose Osmolality Calcium POC WB Ioniz Calcium Lipase Cortisol AM Sample Urine Appearance Urine Protein Urine RBC Urine WBC Urine Bacteria Hyaline Casts Urine Mucus 10/29/22 10/29/22 10/29/22 10:28 10:28 10:24 WBC MCHC Immature Gran % (Auto) Lymph % (Auto) Eagle % (Auto) Eagle # (Auto) Immature Gran # Absolute Neutrophils POC Sodium 111 L* Sodium 107 L* POC Potassium 3.0 L POC Chloride 74 L Chloride Glucose POC Glucose 121 H Osmolality 233 L Calcium POC WB Ioniz Calcium 1.06 L Lipase Cortisol AM Sample Urine Appearance Urine Protein Urine RBC Urine WBC Urine Bacteria Hyaline Casts Urine Mucus 10/29/22 10/29/22 10/29/22 09:51 09:45 09:45 WBC 11.7 H MCHC Immature Gran % (Auto) 0.7 H Lymph % (Auto) 14.6 L Eagle % (Auto) 13.9 H Eagle # (Auto) 1.63 H Immature Gran # 0.08 H Absolute Neutrophils 8.23 H POC Sodium 112 L* Sodium POC Potassium 2.9 L* POC Chloride 75 L Chloride Glucose POC Glucose 124 H Osmolality Calcium POC WB Ioniz Calcium 0.98 L Lipase 121 H Cortisol AM Sample Urine Appearance Urine Protein Urine RBC Urine WBC Urine Bacteria Hyaline Casts Urine Mucus 10/29/22 09:20 WBC MCHC Immature Gran % (Auto) Lymph % (Auto) Eagle % (Auto) Eagle # (Auto) Immature Gran # Absolute Neutrophils POC Sodium Sodium POC Potassium POC Chloride Chloride Glucose POC Glucose Osmolality Calcium POC WB Ioniz Calcium Lipase Cortisol AM Sample Urine Appearance Hazy A Urine Protein >=500 A Urine RBC 7 H Urine WBC 10 H Urine Bacteria Few A Hyaline Casts 25 H Urine Mucus Many A Meds: Medications Acetaminophen (Acetaminophen 325 Mg Tablet) 650 mg PO Q4-6HP PRN; Protocol PRN Reason: Per Pain Protocol/Fever > 101 Albuterol/Ipratropium (Ipratropium/Albuterol 3 Ml Ampul.Neb) 3 ml NEB Q4HRT PRN PRN Reason: Wheezing Aspirin (Aspirin 325 Mg Enteric Coated Tablet) 325 mg PO DAILY [facility] Last Admin: 10/30/22 08:37 Dose: 325 mg Atenolol (Atenolol 50 Mg Tablet) 50 mg PO QDAY [facility] Last Admin: 10/30/22 08:38 Dose: 50 mg Atorvastatin Calcium (Atorvastatin 40 Mg Tablet) 40 mg PO QHS [facility] Last Admin: 10/29/22 20:34 Dose: 40 mg Docusate Sodium (Docusate Sodium 100 Mg Capsule) 100 mg PO BID [facility] Last Admin: 10/30/22 07:39 Dose: Not Given Enoxaparin Sodium (Enoxaparin 40 Mg/0.4 Ml Syringe) 40 mg SQ DAILY [facility] Last Admin: 10/30/22 08:37 Dose: Not Given Fish Oil (Fish Oil 1,000 Mg Capsule) 1,000 mg PO DAILY [facility] Last Admin: 10/30/22 08:37 Dose: 1,000 mg Hydralazine HCl (Hydralazine 20 Mg/Ml Vial) 10 mg IV Q4-6HP PRN PRN Reason: Hypertension Iron Carb/Multivit/[place]/Folic Acid (Multivit,Ther Iron,Ca,Fa & Min 1 Tablet) 1 tab PO DAILY [facility] Last Admin: 10/30/22 08:38 Dose: 1 tab Lactobacillus Rhamnosus (Lactobacillus 1 Capsule) 1 cap PO QAM [facility] Last Admin: 10/30/22 08:37 Dose: 1 cap Loperamide HCl (Loperamide 2 Mg Capsule) 2 mg PO PRN PRN PRN Reason: Diarrhea Losartan Potassium (Losartan 50 Mg Tablet) 100 mg PO DAILY [facility] Last Admin: 10/30/22 08:37 Dose: 100 mg Metoclopramide HCl (Metoclopramide 10 Mg/2 Ml Vial) 5 mg IV Q6 PRN PRN Reason: Nausea And Vomiting Ondansetron HCl (Ondansetron 4 Mg/2 Ml Vial) 4 mg IV Q4-6HP PRN; Protocol PRN Reason: Nausea And Vomiting Prochlorperazine (Prochlorperazine 10 Mg/2 Ml Vial) 10 mg IV Q4-6HP PRN PRN Reason: Nausea And Vomiting Senna (Sennosides 1 Tablet) 1 tab PO DAILY [facility] Last Admin: 10/30/22 08:38 Dose: Not Given Sodium Chloride (0.9 % Sodium Chloride 10 Ml Syringe) 10 ml IV Q8 [facility] Last Admin: 10/30/22 05:20 Dose: 10 ml Trazodone HCl (Trazodone Hcl 50 Mg Tablet) 25 mg PO HSP PRN PRN Reason: Insomnia Last Admin: 10/29/22 21:08 Dose: 25 mg Vitamin D (Vitamin D3 25 Mcg Tablet) 50 mcg PO DAILY [facility] Last Admin: 10/30/22 08:38 Dose: 50 mcg A/P Assessment and plan (1) Acute hyponatremia: Status: Acute (2) Hypokalemia: Status: Acute (3) Acute bronchitis: Status: Acute (4) UTI (urinary tract infection): Status: Acute (5) Essential hypertension: Status: Acute (6) Mixed dyslipidemia: Status: Acute Narrative A/P Narrative: Assessment and Plans: 1. Symptomatic hyponatremia, likely acute: Inpatient ICU with telemetry Consult lauren Strickland. appreciated Stop Triamterene/HCTZ Zofran Reglan Compazine Imodium Saline lock s/p NaCl oral supplement s/p DDAVP Goal serum sodium >130 Goal of rate of correction: 4-6 in 24 hour, serial chemistry Serum and urine osmolality Urine sodium TSH Cortisol, random and AM 2. Hypokalemia: Potassium chloride IV rider Serial BMP to trend serum potassium level and will repeat replacement as needed Also check serum magnesium level and will be placed if indicated 3. h/o recent UTI: Will finish nitrofurantoin 4. History of recent acute bronchitis: Will finish azithromycin and prednisone 5. Essential hypertensions: Stop Triamterene/HCTZ Continue Atenolol Continue Losartan Hydralazine 10mg IV q4-6hr PRN SBP>=180 and/or DBP>=110mmHg 6. Mixed dyslipidemia: Continue statin therapy GI ppx: not currently indicated DVT ppx: Lovenox Code status: Full Prognosis: guarded Disposition: inpatient ICU Critical Care Time: 30min Time Spent With Patient Time: Total time spent is greater than 50% in coordination of care (as documented) at patient's floor/unit and/or counseling patient: Subsequent: Total time with patient: 25 - 34 minutes Critical Care Time: Yes Total Critical Care Time: 30 QUALITY VTE Deep Vein Thrombosis/Pulmonary Embolism Present on Admission: No
[2022-10-30] MEDS ORDERED: BENZONATATE 100 MG CAPSULE PO PRN (15:29)
[2022-10-30] MEDS: traZODone HCL 50 MG TABLET PO PRN (20:16)
[2022-10-30] MEDS: ACETAMINOPHEN 325 MG TABLET PO PRN (20:17)
[2022-10-30] MEDS: ATORVASTATIN 40 MG TABLET PO SCH (20:18)
[2022-10-31] MEDS: guaiFENesin/DEXTROMETHORPHAN 5ML UD CUP PO PRN ×3 (03:08→20:36)
[2022-10-31 06:52] LABS: Basophils # (Auto) 0.03 K/mcL (0.00-0.30); Basophils % (Auto) 0.3 % (0.0-2.0); Eosinophils # (Auto) 0.29 K/mcL (0.00-0.70); Eosinophils % (Auto) 2.4 % (0.0-7.0); Hematocrit 37.1 % (34.1-44.9); Hemoglobin 13.5 g/dL (11.2-15.7); Lymphocytes # (Auto) 3.55 K/mcL (1.50-4.80); Lymphocytes % (Auto) 29.6 % (15.5-49.0); Mean Cell Volume 87.1 fL (80.0-100.0); Mean Corpuscular HGB Conc 36.4 g/dL (31.0-36.0); Mean Platelet Volume 10.4 fL (8.8-12.5); Monocytes # (Auto) 1.61 K/mcL (0.10-0.90); Monocytes % (Auto) 13.4 % (1.0-12.0); Neutrophils % (Auto) 53.7 % (38.0-78.0); Platelet Count 235 K/mcL (140-440); RBC 4.26 M/mcL (3.59-5.38); Red Cell Distribution Width 11.9 % (11.5-14.5)
--- NOTE | 2022-10-31 07:30 | Nephrology Progress Note ---
SUBJECTIVE Subjective Patient information: Note initiated : 10/31/22 at 7:27 am Patient: Joaquina Paredes 66 y/o F admitted on 10/29/22 for N, V. Chief Complaint: Nausea Pertinent ROS: Feels better Constitutional Vitals: Vital Signs Temp Pulse Resp BP Pulse Ox O2 Del Method 96.9 F L 56 L 11 L 136/49 100 Room Air 10/31/22 04:01 10/31/22 04:01 10/31/22 06:01 10/31/22 06:01 10/31/22 04:01 10/31/22 04:01 Period Temp Pulse Resp BP Sys/Saucedo Pulse Ox O2 Del Method O2 Flow Rate Last 24 Hr 96.9 F-98.6 F 52-71 10-18 102-174/45-80 96-100 Room Air-Room Air Intake and Output 10/30/22 10/31/22 10/31/22 19:59 03:59 11:59 Intake Total 480 840 Output Total 400 300 Balance 80 540 Weight 161 lb 8 oz 159 lb 11.2 oz Intake & Output: Intake & Output 10/30/22 10/31/22 10/31/22 19:59 03:59 11:59 Intake Total 480 840 Output Total 400 300 Balance 80 540 Weight 161 lb 8 oz 159 lb 11.2 oz Intake: Oral 480 840 Output: Void Amount 400 300 Other: Meal Lunch Percent of Meal Consumed 100% Feeding Ability Independent Urine Appearance Clear Clear Urine Color Dark Yellow Dark Yellow Urine Odor Normal Normal Stool Size Smear Stool Color Brown Stool Consistency Liquid Watery Loose # Voids 1 # Bowel Movements 2 General appearance: cooperative and no acute distress Head Head exam: Present normal inspection Eye Eye exam: Present normal appearance ENT ENT exam: Present mucous membranes moist Respiratory Respiratory exam: Absent respiratory distress Cardiovascular Cardiovascular exam: Present normal rate and rhythm GI/Abdominal GI/Abdominal exam: Present soft; Absent tenderness Extremities Exam Extremities exam: Absent joint swelling or pedal edema Neurological Exam Neurological exam: Present alert and oriented X3 Psychiatric Psychiatric exam: Present normal affect and normal mood Skin Skin exam: Present warm; Absent rash A/P Assessment and plan (1) Hyponatremia: Assessment and plan: Joaquina Paredes is a 66-year-old female with hypertension presented to ED for nausea and vomiting on 10/29/22. She was in her usual state of health until September 2022 when she started to have a cough and sputum. She was seen in urgent care on 10/25/22. She was diagnosed with bronchitis and UTI. She was prescribed Nitrofurantoin and Azithromycin. She did not have blood work. Her symptoms did not improve, she had nausea and vomiting and was presented to ED. In ED, her workup was significant for hyponatremia. She received 1 L NS and 1 L LR. Admission requested. Nephrology consultation was requested for hyponatremia. Hyponatremia, present on arrival, hypoosmolar, euvolemic, severe (<120), likely chronic (>48 hours), symptomatic (nausea, vomiting, headache, but no confusion, delirium or seizures), associated with gait instability, but no falls, associated with medications (thiazide diuretic), not consistent with SIADH (urine sodium < 40). Work up: Labs on 10/29/22: Serum osmolality, serum sodium, urine osmolality 551, urine sodium 15. Urinalysis on 10/29/22: Yellow, hazy, pH 5.0, SG 1.024, protein >500, blood 0.03, leukocyte esterase negative, urine culture pending. CXR on 10/29/22: Findings compatible with bronchitis. Minor bibasilar atelectasis. Progress: Serum Sodium: 10/29/22 10:24: 107 10/29/22 14:04: 108 10/29/22 18:05: 114 10/29/22 22:10: 109 10/30/22 05:51: 114 10/30/22 12:30: 114 10/30/22 16:05: 113 10/30/22 22:07: 114 10/31/22 05:12: 114 Discussion: Serum sodium unchanged in the past 24 hours. Last Desmopressin dose was 1 mcg SC 24 hours ago. SIADH suspected. PLAN: Hold triamterene 37.5 mg-hydrochlorothiazide 25 mg. Sodium Chloride 2 g PO x 1. Potassium Chloride 40 mEq PO x 1. Repeat random urine sodium for suspected SIADH. Next serum sodium at noon. Target serum sodium elevation: <4-6 mEq/L/24 hours. Goal serum sodium of >130 mEq/L. Status: Chronic Time Spent With Patient Time: Total time spent is greater than 50% in coordination of care (as documented) at patient's floor/unit and/or counseling patient:
[2022-10-31 07:46] LABS: Blood Urea Nitrogen 16 mg/dL (8-23); Calcium 8.1 mg/dL (8.6-10.4); Carbon Dioxide 24 mmol/L (22-30); Chloride 84 mmol/L (96-108); Glomerular Filtration Rate 88; Glucose 81 mg/dL (70-105)
[2022-10-31] MEDS: 0.9 % SODIUM CHLORIDE 10 ML SYRINGE IV SCH ×3 (07:47→20:15)
[2022-10-31] MEDS ORDERED: POTASSIUM CHLORIDE 20 MEQ TABLET PO ONE (07:53)
[2022-10-31] MEDS ORDERED: SODIUM CHLORIDE 1 GM TABLET PO ONE ×2 (07:53→13:30)
[2022-10-31] MEDS: FISH OIL 1,000 MG CAPSULE PO SCH (08:30)
[2022-10-31] MEDS: MULTIVIT,THER IRON,CA,FA & MIN 1 TABLET PO SCH (08:30)
[2022-10-31] MEDS: ENOXAPARIN 40 MG/0.4 ML SYRINGE SQ SCH (08:31)
[2022-10-31] MEDS: DOCUSATE SODIUM 100 MG CAPSULE PO SCH ×2 (08:31→20:41)
[2022-10-31] MEDS: ASPIRIN 325 MG ENTERIC COATED TABLET PO SCH (08:31)
[2022-10-31] MEDS: LOSARTAN 50 MG TABLET PO SCH (08:32)
[2022-10-31] MEDS: ATENOLOL 50 MG TABLET PO SCH (08:32)
[2022-10-31] MEDS: VITAMIN D3 25 MCG TABLET PO SCH (08:32)
[2022-10-31] MEDS: LACTOBACILLUS 1 CAPSULE PO SCH (08:32)
[2022-10-31] MEDS: SENNOSIDES 1 TABLET PO SCH (08:34)
--- NOTE | 2022-10-31 09:16 | Internal Med Progress Note ---
SUBJECTIVE Subjective Patient information: Note initiated : 10/31/22 at 9:13 am Service Date, if different from initiated Date: [] Patient: Joaquina Paredes a 66 y/o F admitted on 10/29/22 for N, V. Chief Complaint: [] Interval history: Ms. Paredes is a 66 year old F history of essential hypertensions, dyslipidemia, recently diagnosed urinary tract infections and bronchitis, presenting with 4- day history of nausea vomiting and general weakness. She was recently being diagnosed with urinary tract infections and bronchitis at the urgent care center and was being prescribed with Macrobid, prednisone, and azithromycin respectively. 4 days ago, she started to experience nausea, vomiting, and general body weakness. Of note, her GI symptoms of nausea vomiting onset was prior to the start of the antibiotics. She has been taking triamterene/hydroch lorothiazide for blood pressure control and she has been taking it for long time and there is no recent dosage changes. Vital signs at ED presentations within normal limits. Labs significant for serum sodium level 111, and serum potassium level 3.0. Magnesium level, serum and urine osmolality, and urine sodium level pending. Urinalysis negative leukocyte esterase and negative nitrates. Chest x-ray results pending. Admission request is called for symptomatic hyponatremia and hypokalemia. 10/30: Dr. Ledezma recs. saline lock, gave patient NaCL oral supplement, DDAVP x2, and serial chemistry to trend serum sodium level. Continue to hold Triamterene-HCTZ. Patient is feeling a lot stronger today. No more nausea vomiting or diarrhea. Good appetite. Able to keep the food down. We will continue to work with Dr. Ledezma for the management of symptomatic hyponatremia. Overall condition gu arded. Keep the patient in ICU. 10/31: Serum sodium potassium level 114 and 3.3, respectively this morning. Patient has so-so appetite and she is still very tired this morning. Continue to check with Dr. Ledezma for recommendations, it is really appreciated. Sodium chloride 2 g p.o. once, potassium chloride 40 mEq p.o. once. Repeat chemistry at noon. We will also obtain urine random sodium level to look for SIADH. Overall condition guarded. Keep the patient in ICU. Constitutional Vitals: Vital Signs Temp Pulse Resp BP Pulse Ox O2 Del Method 36.1 C L 52 L 11 L 136/49 95 Room Air 10/31/22 04:01 10/31/22 07:44 10/31/22 07:44 10/31/22 06:01 10/31/22 07:44 10/31/22 04:01 Period Temp Pulse Resp BP Sys/Saucedo Pulse Ox O2 Del Method O2 Flow Rate Last 24 Hr 36.1 C-36.9 C 52-71 10-18 102-174/45-76 95-100 Room Air-Room Air Intake and Output 10/30/22 10/31/22 10/31/22 19:59 03:59 11:59 Intake Total 480 840 Output Total 400 300 Balance 80 540 Weight 73.255 kg 72.439 kg Intake & Output: Intake & Output 10/30/22 10/31/22 10/31/22 19:59 03:59 11:59 Intake Total 480 840 Output Total 400 300 Balance 80 540 Weight 73.255 kg 72.439 kg Intake: Oral 480 840 Output: Void Amount 400 300 Other: Meal Lunch Percent of Meal Consumed 100% Feeding Ability Independent Urine Appearance Clear Clear Urine Color Dark Yellow Dark Yellow Urine Odor Normal Normal Stool Size Smear Stool Color Brown Stool Consistency Liquid Watery Loose # Voids 1 # Bowel Movements 2 OBJ DATA Labs 10/31/22 05:12 10/31/22 05:12 Labs: Abnormal Lab Results 10/31/22 10/31/22 10/30/22 05:12 05:12 22:07 WBC 12.0 H MCHC 36.4 H Immature Gran % (Auto) 0.6 H Lymph % (Auto) King % (Auto) 13.4 H King # (Auto) 1.61 H Immature Gran # 0.07 H Absolute Neutrophils POC Sodium Sodium 114 L* 114 L* POC Potassium POC Chloride Chloride 84 L Anion Gap 6.0 L Glucose POC Glucose Osmolality Calcium 8.1 L POC WB Ioniz Calcium Lipase Cortisol AM Sample Urine Appearance Urine Protein Urine RBC Urine WBC Urine Bacteria Hyaline Casts Urine Mucus 10/30/22 10/30/22 10/30/22 16:05 12:30 05:51 WBC MCHC Immature Gran % (Auto) Lymph % (Auto) King % (Auto) King # (Auto) Immature Gran # Absolute Neutrophils POC Sodium Sodium 113 L* 114 L* 114 L* POC Potassium POC Chloride Chloride 79 L Anion Gap Glucose POC Glucose Osmolality Calcium 8.4 L POC WB Ioniz Calcium Lipase Cortisol AM Sample Urine Appearance Urine Protein Urine RBC Urine WBC Urine Bacteria Hyaline Casts Urine Mucus 10/30/22 10/30/22 10/29/22 05:51 05:51 22:10 WBC MCHC 36.7 H Immature Gran % (Auto) 0.7 H Lymph % (Auto) 15.0 L King % (Auto) King # (Auto) 1.23 H Immature Gran # 0.07 H Absolute Neutrophils POC Sodium Sodium 109 L* POC Potassium POC Chloride Chloride Anion Gap Glucose POC Glucose Osmolality Calcium POC WB Ioniz Calcium Lipase Cortisol AM Sample 2.9 L Urine Appearance Urine Protein Urine RBC Urine WBC Urine Bacteria Hyaline Casts Urine Mucus 10/29/22 10/29/22 10/29/22 18:05 14:04 10:28 WBC MCHC Immature Gran % (Auto) Lymph % (Auto) King % (Auto) King # (Auto) Immature Gran # Absolute Neutrophils POC Sodium 111 L* Sodium 114 L* 108 L* POC Potassium 3.0 L POC Chloride 74 L Chloride 77 L Anion Gap Glucose 113 H POC Glucose 121 H Osmolality Calcium POC WB Ioniz Calcium 1.06 L Lipase Cortisol AM Sample Urine Appearance Urine Protein Urine RBC Urine WBC Urine Bacteria Hyaline Casts Urine Mucus 10/29/22 10/29/22 10/29/22 10:28 10:24 09:51 WBC MCHC Immature Gran % (Auto) Lymph % (Auto) King % (Auto) King # (Auto) Immature Gran # Absolute Neutrophils POC Sodium 112 L* Sodium 107 L* POC Potassium 2.9 L* POC Chloride 75 L Chloride Anion Gap Glucose POC Glucose 124 H Osmolality 233 L Calcium POC WB Ioniz Calcium 0.98 L Lipase Cortisol AM Sample Urine Appearance Urine Protein Urine RBC Urine WBC Urine Bacteria Hyaline Casts Urine Mucus 10/29/22 10/29/22 10/29/22 09:45 09:45 09:20 WBC 11.7 H MCHC Immature Gran % (Auto) 0.7 H Lymph % (Auto) 14.6 L King % (Auto) 13.9 H King # (Auto) 1.63 H Immature Gran # 0.08 H Absolute Neutrophils 8.23 H POC Sodium Sodium POC Potassium POC Chloride Chloride Anion Gap Glucose POC Glucose Osmolality Calcium POC WB Ioniz Calcium Lipase 121 H Cortisol AM Sample Urine Appearance Hazy A Urine Protein >=500 A Urine RBC 7 H Urine WBC 10 H Urine Bacteria Few A Hyaline Casts 25 H Urine Mucus Many A Meds: Medications Acetaminophen (Acetaminophen 325 Mg Tablet) 650 mg PO Q4-6HP PRN; Protocol PRN Reason: Per Pain Protocol/Fever > 101 Last Admin: 10/30/22 20:17 Dose: 650 mg Albuterol/Ipratropium (Ipratropium/Albuterol 3 Ml Ampul.Neb) 3 ml NEB Q4HRT PRN PRN Reason: Wheezing Aspirin (Aspirin 325 Mg Enteric Coated Tablet) 325 mg PO DAILY [facility] Last Admin: 10/31/22 08:31 Dose: 325 mg Atenolol (Atenolol 50 Mg Tablet) 50 mg PO QDAY [facility] Last Admin: 10/31/22 08:32 Dose: 50 mg Atorvastatin Calcium (Atorvastatin 40 Mg Tablet) 40 mg PO QHS [facility] Last Admin: 10/30/22 20:18 Dose: 40 mg Benzonatate (Benzonatate 100 Mg Capsule) 100 mg PO TIDP PRN PRN Reason: Cough Last Admin: 10/30/22 20:17 Dose: 100 mg Docusate Sodium (Docusate Sodium 100 Mg Capsule) 100 mg PO BID [facility] Last Admin: 10/31/22 08:31 Dose: Not Given Enoxaparin Sodium (Enoxaparin 40 Mg/0.4 Ml Syringe) 40 mg SQ DAILY [facility] Last Admin: 10/31/22 08:31 Dose: Not Given Fish Oil (Fish Oil 1,000 Mg Capsule) 1,000 mg PO DAILY [facility] Last Admin: 10/31/22 08:30 Dose: 1,000 mg Guaifenesin (Guaifenesin/Dextromethorphan 5ml Ud Cup) 10 ml PO Q4HP PRN PRN Reason: Cough Last Admin: 10/31/22 03:08 Dose: 10 ml Hydralazine HCl (Hydralazine 20 Mg/Ml Vial) 10 mg IV Q4-6HP PRN PRN Reason: Hypertension Iron Carb/Multivit/Increment Manager/Folic Acid (Multivit,Ther Iron,Ca,Fa & Min 1 Tablet) 1 tab PO DAILY [facility] Last Admin: 10/31/22 08:30 Dose: 1 tab Lactobacillus Rhamnosus (Lactobacillus 1 Capsule) 1 cap PO QAM [facility] Last Admin: 10/31/22 08:32 Dose: 1 cap Loperamide HCl (Loperamide 2 Mg Capsule) 2 mg PO PRN PRN PRN Reason: Diarrhea Last Admin: 10/30/22 17:04 Dose: 2 mg Losartan Potassium (Losartan 50 Mg Tablet) 100 mg PO DAILY [facility] Last Admin: 10/31/22 08:32 Dose: 100 mg Metoclopramide HCl (Metoclopramide 10 Mg/2 Ml Vial) 5 mg IV Q6 PRN PRN Reason: Nausea And Vomiting Ondansetron HCl (Ondansetron 4 Mg/2 Ml Vial) 4 mg IV Q4-6HP PRN; Protocol PRN Reason: Nausea And Vomiting Prochlorperazine (Prochlorperazine 10 Mg/2 Ml Vial) 10 mg IV Q4-6HP PRN PRN Reason: Nausea And Vomiting Senna (Sennosides 1 Tablet) 1 tab PO DAILY [facility] Last Admin: 10/31/22 08:34 Dose: Not Given Sodium Chloride (0.9 % Sodium Chloride 10 Ml Syringe) 10 ml IV Q8 [facility] Last Admin: 10/31/22 07:47 Dose: Not Given Trazodone HCl (Trazodone Hcl 50 Mg Tablet) 25 mg PO HSP PRN PRN Reason: Insomnia Last Admin: 10/30/22 20:16 Dose: 25 mg Vitamin D (Vitamin D3 25 Mcg Tablet) 50 mcg PO DAILY [facility] Last Admin: 10/31/22 08:32 Dose: 50 mcg A/P Assessment and plan (1) Acute hyponatremia: Status: Acute (2) Hypokalemia: Status: Acute (3) Acute bronchitis: Status: Acute (4) UTI (urinary tract infection): Status: Acute (5) Essential hypertension: Status: Acute (6) Mixed dyslipidemia: Status: Acute Narrative A/P Narrative: Assessment and Plans: 1. Symptomatic hyponatremia, likely acute: Inpatient ICU with telemetry Consult Dr. Ledezma, recs. appreciated Stop Triamterene/HCTZ Zofran Reglan Compazine Imodium Saline lock NaCl 2gm PO once s/p DDAVP Goal serum sodium >130 Goal of rate of correction: 4-6 in 24 hour, serial chemistry Urine sodium to rule out SIADH Repeat chemistry at noon 2. Hypokalemia: Potassium chloride 40mEq PO once Serial BMP to trend serum potassium level and will repeat replacement as needed Also check serum magnesium level and will be placed if indicated 3. h/o recent UTI: Will finish nitrofurantoin 4. History of recent acute bronchitis: Will finish azithromycin and prednisone 5. Essential hypertensions: Stop Triamterene/HCTZ Continue Atenolol Continue Losartan Hydralazine 10mg IV q4-6hr PRN SBP>=180 and/or DBP>=110mmHg 6. Mixed dyslipidemia: Continue statin therapy GI ppx: not currently indicated DVT ppx: Lovenox Code status: Full Prognosis: guarded Disposition: inpatient ICU Critical Care Time: 30min Time Spent With Patient Time: Total time spent is greater than 50% in coordination of care (as documented) at patient's floor/unit and/or counseling patient: Subsequent: Total time with patient: 25 - 34 minutes Critical Care Time: Yes Total Critical Care Time: 30 QUALITY VTE Deep Vein Thrombosis/Pulmonary Embolism Present on Admission: No
[2022-10-31] MEDS ORDERED: DESMOPRESSIN ACETATE SQ ONE (20:09)
[2022-10-31] MEDS ORDERED: SODIUM CHLORIDE 0.9% SQ ONE (20:09)
[2022-10-31] MEDS: ATORVASTATIN 40 MG TABLET PO SCH (20:37)
[2022-10-31] MEDS: ACETAMINOPHEN 325 MG TABLET PO PRN (20:37)
[2022-10-31] MEDS ORDERED: DESMOPRESSIN ACETATE 4 MCG/ML AMPUL SQ ONE (21:15)
[2022-11-01] MEDS: 0.9 % SODIUM CHLORIDE 10 ML SYRINGE IV SCH ×3 (06:30→20:25)
[2022-11-01 06:34] LABS: Basophils # (Auto) 0.04 K/mcL (0.00-0.30); Basophils % (Auto) 0.4 % (0.0-2.0); Eosinophils # (Auto) 0.24 K/mcL (0.00-0.70); Eosinophils % (Auto) 2.4 % (0.0-7.0); Hematocrit 38.3 % (34.1-44.9); Lymphocytes # (Auto) 2.36 K/mcL (1.50-4.80); Lymphocytes % (Auto) 23.6 % (15.5-49.0); Mean Cell Volume 88.7 fL (80.0-100.0); Mean Corpuscular HGB Conc 36.6 g/dL (31.0-36.0); Mean Platelet Volume 10.3 fL (8.8-12.5); Platelet Count 221 K/mcL (140-440); RBC 4.32 M/mcL (3.59-5.38); Red Cell Distribution Width 12.4 % (11.5-14.5)
[2022-11-01 06:53] LABS: Blood Urea Nitrogen 13 mg/dL (8-23); Carbon Dioxide 24 mmol/L (22-30); Chloride 91 mmol/L (96-108); Glomerular Filtration Rate 93; Glucose 79 mg/dL (70-105)
--- NOTE | 2022-11-01 07:01 | Nephrology Progress Note ---
SUBJECTIVE Subjective Patient information: Note initiated : 11/01/22 at 6:56 am Patient: Joaquina Paredes 66 y/o F admitted on 10/29/22 for N, V. Chief Complaint: Nausea Pertinent ROS: No nausea No weakness Feels good Constitutional Vitals: Vital Signs Temp Pulse Resp BP Pulse Ox O2 Del Method 97.2 F 53 L 16 147/74 95 Room Air 11/01/22 04:00 10/31/22 08:01 11/01/22 04:00 11/01/22 04:00 11/01/22 04:00 11/01/22 04:00 Period Temp Pulse Resp BP Sys/Saucedo Pulse Ox O2 Del Method O2 Flow Rate Last 24 Hr 97.2 F-98.8 F 52-53 11-20 95-178/46-118 94-98 Room Air-Room Air Intake and Output 10/31/22 11/01/22 11/01/22 19:59 03:59 11:59 Intake Total 600 240 Output Total 1000 775 Balance -400 -535 Weight 159 lb 11.2 oz 157 lb Intake & Output: Intake & Output 10/31/22 11/01/22 11/01/22 19:59 03:59 11:59 Intake Total 600 240 Output Total 1000 775 Balance -400 -535 Weight 159 lb 11.2 oz 157 lb Intake: Oral 600 240 Output: Void Amount 1000 775 Other: Meal Dinner Percent of Meal Consumed 100% Feeding Ability Independent Urine Appearance Clear Clear Urine Color Yellow Bright Yellow Urine Odor Normal Normal General appearance: cooperative and no acute distress Head Head exam: Present normal inspection Eye Eye exam: Present normal appearance ENT ENT exam: Present mucous membranes moist Respiratory Respiratory exam: Absent respiratory distress Cardiovascular Cardiovascular exam: Present normal rate and rhythm GI/Abdominal GI/Abdominal exam: Present soft; Absent tenderness Extremities Exam Extremities exam: Absent joint swelling or pedal edema Neurological Exam Neurological exam: Present alert and oriented X3 Psychiatric Psychiatric exam: Present normal affect and normal mood Skin Skin exam: Present warm; Absent rash A/P Assessment and plan (1) Hyponatremia: Assessment and plan: Joaquina Paredes is a 66-year-old female with hypertension presented to ED for nausea and vomiting on 10/29/22. She was in her usual state of health until September 2022 when she started to have a cough and sputum. She was seen in urgent care on 10/25/22. She was diagnosed with bronchitis and UTI. She was prescribed Nitrofurantoin and Azithromycin. She did not have blood work. Her symptoms did not improve, she had nausea and vomiting and was presented to ED. In ED, her workup was significant for hyponatremia. She received 1 L NS and 1 L LR. Admission requested. Nephrology consultation was requested for hyponatremia. Hyponatremia, present on arrival, hypoosmolar, euvolemic, severe (<120), likely chronic (>48 hours), symptomatic (nausea, vomiting, headache, but no confusion, delirium or seizures), associated with gait instability, but no falls, associated with medications (thiazide diuretic), not consistent with SIADH (urine sodium < 40). Work up: Labs on 10/29/22: Serum osmolality, serum sodium, urine osmolality 551, urine sodium 15. Urinalysis on 10/29/22: Yellow, hazy, pH 5.0, SG 1.024, protein >500, blood 0.03, leukocyte esterase negative, urine culture pending. CXR on 10/29/22: Findings compatible with bronchitis. Minor bibasilar atelectasis. Urine sodium on 10/31/22: 10 Progress: Serum Sodium: 10/29/22 10:24: 107 10/29/22 14:04: 108 10/29/22 18:05: 114 10/29/22 22:10: 109 10/30/22 05:51: 114 10/30/22 12:30: 114 10/30/22 16:05: 113 10/30/22 22:07: 114 10/31/22 05:12: 114 10/31/22 12:10: 114 10/31/22 18:55: 121 10/31/22 05:12: 121 Discussion: SIADH ruled out. PLAN: Discontinue triamterene 37.5 mg-hydrochlorothiazide 25 mg. Next serum sodium at 17:00. Target serum sodium elevation: <4-6 mEq/L/24 hours. Goal serum sodium of >130 mEq/L. Anticipate discharge in 24 hours from nephrology point. Status: Chronic Time Spent With Patient Time: Total time spent is greater than 50% in coordination of care (as documented) at patient's floor/unit and/or counseling patient:
--- NOTE | 2022-11-01 08:20 | Internal Med Progress Note ---
SUBJECTIVE Subjective Patient information: Note initiated : 11/01/22 at 8:20 am Service Date, if different from initiated Date: [] Patient: Joaquina Paredes a 66 y/o F admitted on 10/29/22 for N, V. Chief Complaint: [] Interval history: Ms. Paredes is a 66 year old F history of essential hypertensions, dyslipidemia, recently diagnosed urinary tract infections and bronchitis, presenting with 4- day history of nausea vomiting and general weakness. She was recently being diagnosed with urinary tract infections and bronchitis at the urgent care center and was being prescribed with Macrobid, prednisone, and azithromycin respectively. 4 days ago, she started to experience nausea, vomiting, and general body weakness. Of note, her GI symptoms of nausea vomiting onset was prior to the start of the antibiotics. She has been taking triamterene/hydroch lorothiazide for blood pressure control and she has been taking it for long time and there is no recent dosage changes. Vital signs at ED presentations within normal limits. Labs significant for serum sodium level 111, and serum potassium level 3.0. Magnesium level, serum and urine osmolality, and urine sodium level pending. Urinalysis negative leukocyte esterase and negative nitrates. Chest x-ray results pending. Admission request is called for symptomatic hyponatremia and hypokalemia. 10/30: Dr. Ledezma recs. saline lock, gave patient NaCL oral supplement, DDAVP x2, and serial chemistry to trend serum sodium level. Continue to hold Triamterene-HCTZ. Patient is feeling a lot stronger today. No more nausea vomiting or diarrhea. Good appetite. Able to keep the food down. We will continue to work with Dr. Ledezma for the management of symptomatic hyponatremia. Overall condition gu arded. Keep the patient in ICU. 10/31: Serum sodium potassium level 114 and 3.3, respectively this morning. Patient has so-so appetite and she is still very tired this morning. Continue to check with Dr. Ledezma for recommendations, it is really appreciated. Sodium chloride 2 g p.o. once, potassium chloride 40 mEq p.o. once. Repeat chemistry at noon. We will also obtain urine random sodium level to look for SIADH. Overall condition guarded. Keep the patient in ICU. 11/01L Serum sodium potassium level 121 and 3.9, respectively this morning. She is feeling well this morning with improving energy level and appetite. No nausea or vomiting. Continue to check with Dr. Ledezma for recommendations, it is really appreciated. d/c salt tab and DDAVP. Repeat serum sodium level at 1700. Overall condition guarded. Constitutional Vitals: Vital Signs Temp Pulse Resp BP Pulse Ox O2 Del Method 36.3 C 53 L 16 150/55 96 Room Air 11/01/22 07:40 10/31/22 08:01 11/01/22 07:40 11/01/22 07:40 11/01/22 07:40 11/01/22 06:01 Period Temp Pulse Resp BP Sys/Saucedo Pulse Ox O2 Del Method O2 Flow Rate Last 24 Hr 36.2 C-37.1 C 14-20 95-178/46-118 94-97 Room Air-Room Air Intake and Output 10/31/22 11/01/22 11/01/22 19:59 03:59 11:59 Intake Total 600 240 120 Output Total 1000 775 100 Balance -400 -535 20 Weight 72.439 kg 71.214 kg Intake & Output: Intake & Output 10/31/22 11/01/22 11/01/22 19:59 03:59 11:59 Intake Total 600 240 120 Output Total 1000 775 100 Balance -400 -535 20 Weight 72.439 kg 71.214 kg Intake: Oral 600 240 120 Output: Void Amount 1000 775 100 Other: Meal Dinner Percent of Meal Consumed 100% Feeding Ability Independent Urine Appearance Clear Clear Clear Urine Color Yellow Bright Yellow Yellow Urine Odor Normal Normal Normal Head Head exam: Present atraumatic and normal inspection Eye Eye exam: Present normal appearance ENT ENT exam: Present mucous membranes moist, normal exam and normal external ear exam Neck Neck exam: Present normal inspection Respiratory Respiratory exam: Present normal respiratory exam Cardiovascular Cardiovascular exam: Present normal rate and rhythm GI/Abdominal GI/Abdominal exam: Present normal bowel sounds Back Exam Back exam: Present normal inspection Neurological Exam Neurological exam: Present alert and oriented X3 Skin Skin exam: Present intact and warm OBJ DATA Labs 11/01/22 05:11 11/01/22 05:11 Labs: Abnormal Lab Results 11/01/22 11/01/22 10/31/22 05:11 05:11 18:55 WBC MCHC 36.6 H Immature Gran % (Auto) 0.6 H Lymph % (Auto) [place] % (Auto) 13.0 H [place] # (Auto) 1.30 H Immature Gran # 0.06 H Absolute Neutrophils POC Sodium Sodium 121 L 121 L POC Potassium POC Chloride Chloride 91 L Anion Gap 6.0 L Glucose POC Glucose Osmolality Calcium 8.0 L POC WB Ioniz Calcium Lipase Cortisol AM Sample Urine Appearance Urine Protein Urine RBC Urine WBC Urine Bacteria Hyaline Casts Urine Mucus 10/31/22 10/31/22 10/31/22 12:10 05:12 05:12 WBC 12.0 H MCHC 36.4 H Immature Gran % (Auto) 0.6 H Lymph % (Auto) [place] % (Auto) 13.4 H [place] # (Auto) 1.61 H Immature Gran # 0.07 H Absolute Neutrophils POC Sodium Sodium 114 L* 114 L* POC Potassium POC Chloride Chloride 84 L Anion Gap 6.0 L Glucose POC Glucose Osmolality Calcium 8.1 L POC WB Ioniz Calcium Lipase Cortisol AM Sample Urine Appearance Urine Protein Urine RBC Urine WBC Urine Bacteria Hyaline Casts Urine Mucus 10/30/22 10/30/22 10/30/22 22:07 16:05 12:30 WBC MCHC Immature Gran % (Auto) Lymph % (Auto) [place] % (Auto) [place] # (Auto) Immature Gran # Absolute Neutrophils POC Sodium Sodium 114 L* 113 L* 114 L* POC Potassium POC Chloride Chloride Anion Gap Glucose POC Glucose Osmolality Calcium POC WB Ioniz Calcium Lipase Cortisol AM Sample Urine Appearance Urine Protein Urine RBC Urine WBC Urine Bacteria Hyaline Casts Urine Mucus 10/30/22 10/30/22 10/30/22 05:51 05:51 05:51 WBC MCHC 36.7 H Immature Gran % (Auto) 0.7 H Lymph % (Auto) 15.0 L [place] % (Auto) [place] # (Auto) 1.23 H Immature Gran # 0.07 H Absolute Neutrophils POC Sodium Sodium 114 L* POC Potassium POC Chloride Chloride 79 L Anion Gap Glucose POC Glucose Osmolality Calcium 8.4 L POC WB Ioniz Calcium Lipase Cortisol AM Sample 2.9 L Urine Appearance Urine Protein Urine RBC Urine WBC Urine Bacteria Hyaline Casts Urine Mucus 10/29/22 10/29/22 10/29/22 22:10 18:05 14:04 WBC MCHC Immature Gran % (Auto) Lymph % (Auto) [place] % (Auto) [place] # (Auto) Immature Gran # Absolute Neutrophils POC Sodium Sodium 109 L* 114 L* 108 L* POC Potassium POC Chloride Chloride 77 L Anion Gap Glucose 113 H POC Glucose Osmolality Calcium POC WB Ioniz Calcium Lipase Cortisol AM Sample Urine Appearance Urine Protein Urine RBC Urine WBC Urine Bacteria Hyaline Casts Urine Mucus 10/29/22 10/29/22 10/29/22 10:28 10:28 10:24 WBC MCHC Immature Gran % (Auto) Lymph % (Auto) [place] % (Auto) [place] # (Auto) Immature Gran # Absolute Neutrophils POC Sodium 111 L* Sodium 107 L* POC Potassium 3.0 L POC Chloride 74 L Chloride Anion Gap Glucose POC Glucose 121 H Osmolality 233 L Calcium POC WB Ioniz Calcium 1.06 L Lipase Cortisol AM Sample Urine Appearance Urine Protein Urine RBC Urine WBC Urine Bacteria Hyaline Casts Urine Mucus 10/29/22 10/29/22 10/29/22 09:51 09:45 09:45 WBC 11.7 H MCHC Immature Gran % (Auto) 0.7 H Lymph % (Auto) 14.6 L [place] % (Auto) 13.9 H [place] # (Auto) 1.63 H Immature Gran # 0.08 H Absolute Neutrophils 8.23 H POC Sodium 112 L* Sodium POC Potassium 2.9 L* POC Chloride 75 L Chloride Anion Gap Glucose POC Glucose 124 H Osmolality Calcium POC WB Ioniz Calcium 0.98 L Lipase 121 H Cortisol AM Sample Urine Appearance Urine Protein Urine RBC Urine WBC Urine Bacteria Hyaline Casts Urine Mucus 10/29/22 09:20 WBC MCHC Immature Gran % (Auto) Lymph % (Auto) [place] % (Auto) [place] # (Auto) Immature Gran # Absolute Neutrophils POC Sodium Sodium POC Potassium POC Chloride Chloride Anion Gap Glucose POC Glucose Osmolality Calcium POC WB Ioniz Calcium Lipase Cortisol AM Sample Urine Appearance Hazy A Urine Protein >=500 A Urine RBC 7 H Urine WBC 10 H Urine Bacteria Few A Hyaline Casts 25 H Urine Mucus Many A Meds: Medications Acetaminophen (Acetaminophen 325 Mg Tablet) 650 mg PO Q4-6HP PRN; Protocol PRN Reason: Per Pain Protocol/Fever > 101 Last Admin: 10/31/22 20:37 Dose: 650 mg Albuterol/Ipratropium (Ipratropium/Albuterol 3 Ml Ampul.Neb) 3 ml NEB Q4HRT PRN PRN Reason: Wheezing Aspirin (Aspirin 325 Mg Enteric Coated Tablet) 325 mg PO DAILY [facility] Last Admin: 10/31/22 08:31 Dose: 325 mg Atenolol (Atenolol 50 Mg Tablet) 50 mg PO QDAY [facility] Last Admin: 10/31/22 08:32 Dose: 50 mg Atorvastatin Calcium (Atorvastatin 40 Mg Tablet) 40 mg PO QHS [facility] [place] Last Admin: 10/31/22 20:37 Dose: 40 mg Benzonatate (Benzonatate 100 Mg Capsule) 100 mg PO TIDP PRN PRN Reason: Cough Last Admin: 10/30/22 20:17 Dose: 100 mg Docusate Sodium (Docusate Sodium 100 Mg Capsule) 100 mg PO BID [facility] [place] Last Admin: 10/31/22 20:41 Dose: Not Given Enoxaparin Sodium (Enoxaparin 40 Mg/0.4 Ml Syringe) 40 mg SQ DAILY [facility] [place] Last Admin: 10/31/22 08:31 Dose: Not Given Fish Oil (Fish Oil 1,000 Mg Capsule) 1,000 mg PO DAILY [facility] [place] Last Admin: 10/31/22 08:30 Dose: 1,000 mg Guaifenesin (Guaifenesin/Dextromethorphan 5ml Ud Cup) 10 ml PO Q4HP PRN PRN Reason: Cough Last Admin: 10/31/22 20:36 Dose: 10 ml Hydralazine HCl (Hydralazine 20 Mg/Ml Vial) 10 mg IV Q4-6HP PRN PRN Reason: Hypertension Iron Carb/Multivit/Oran/Folic Acid (Multivit,Ther Iron,Ca,Fa & Min 1 Tablet) 1 tab PO DAILY [facility] [place] Last Admin: 10/31/22 08:30 Dose: 1 tab Lactobacillus Rhamnosus (Lactobacillus 1 Capsule) 1 cap PO QAM [facility] [place] Last Admin: 10/31/22 08:32 Dose: 1 cap Loperamide HCl (Loperamide 2 Mg Capsule) 2 mg PO PRN PRN PRN Reason: Diarrhea Last Admin: 10/30/22 17:04 Dose: 2 mg Losartan Potassium (Losartan 50 Mg Tablet) 100 mg PO DAILY [facility] [place] Last Admin: 10/31/22 08:32 Dose: 100 mg Metoclopramide HCl (Metoclopramide 10 Mg/2 Ml Vial) 5 mg IV Q6 PRN PRN Reason: Nausea And Vomiting Ondansetron HCl (Ondansetron 4 Mg/2 Ml Vial) 4 mg IV Q4-6HP PRN; Protocol PRN Reason: Nausea And Vomiting Prochlorperazine (Prochlorperazine 10 Mg/2 Ml Vial) 10 mg IV Q4-6HP PRN PRN Reason: Nausea And Vomiting Senna (Sennosides 1 Tablet) 1 tab PO DAILY [facility] [place] Last Admin: 10/31/22 08:34 Dose: Not Given Sodium Chloride (0.9 % Sodium Chloride 10 Ml Syringe) 10 ml IV Q8 [facility] [place] Last Admin: 11/01/22 06:30 Dose: 10 ml Trazodone HCl (Trazodone Hcl 50 Mg Tablet) 25 mg PO HSP PRN PRN Reason: Insomnia Last Admin: 10/30/22 20:16 Dose: 25 mg Vitamin D (Vitamin D3 25 Mcg Tablet) 50 mcg PO DAILY [facility] [place] Last Admin: 10/31/22 08:32 Dose: 50 mcg A/P Assessment and plan (1) Acute hyponatremia: Status: Acute (2) Hypokalemia: Status: Acute (3) Acute bronchitis: Status: Acute (4) UTI (urinary tract infection): Status: Acute (5) Essential hypertension: Status: Acute (6) Mixed dyslipidemia: Status: Acute Narrative A/P Narrative: Assessment and Plans: 1. Symptomatic hyponatremia, likely acute: Inpatient ICU with telemetry Consult lauren tSrickland. appreciated Stop Triamterene/HCTZ Zofran Reglan Compazine Imodium Saline lock d/c salt tab d/c DDAVP Goal serum sodium >130 Goal of rate of correction: 4-6 in 24 hour, serial chemistry Urine sodium to rule out SIADH Repeat sodium level at 1700 2. Hypokalemia: Potassium chloride 40mEq PO once Serial BMP to trend serum potassium level and will repeat replacement as needed Also check serum magnesium level and will be placed if indicated 3. h/o recent UTI: Will finish nitrofurantoin 4. History of recent acute bronchitis: Will finish azithromycin and prednisone 5. Essential hypertensions: Stop Triamterene/HCTZ Continue Atenolol Continue Losartan Hydralazine 10mg IV q4-6hr PRN SBP>=180 and/or DBP>=110mmHg 6. Mixed dyslipidemia: Continue statin therapy GI ppx: not currently indicated DVT ppx: Lovenox Code status: Full Prognosis: guarded Disposition: inpatient ICU Critical Care Time: 30min Time Spent With Patient Time: Total time spent is greater than 50% in coordination of care (as documented) at patient's floor/unit and/or counseling patient: Critical Care Time: Yes Total Critical Care Time: 30 QUALITY VTE Deep Vein Thrombosis/Pulmonary Embolism Present on Admission: No
[2022-11-01] MEDS: LACTOBACILLUS 1 CAPSULE PO SCH (08:33)
[2022-11-01] MEDS: FISH OIL 1,000 MG CAPSULE PO SCH (08:33)
[2022-11-01] MEDS: ENOXAPARIN 40 MG/0.4 ML SYRINGE SQ SCH (08:33)
[2022-11-01] MEDS: VITAMIN D3 25 MCG TABLET PO SCH (08:33)
[2022-11-01] MEDS: SENNOSIDES 1 TABLET PO SCH (08:34)
[2022-11-01] MEDS: ASPIRIN 325 MG ENTERIC COATED TABLET PO SCH (08:34)
[2022-11-01] MEDS: MULTIVIT,THER IRON,CA,FA & MIN 1 TABLET PO SCH (08:34)
[2022-11-01] MEDS: DOCUSATE SODIUM 100 MG CAPSULE PO SCH ×2 (08:34→20:25)
[2022-11-01] MEDS: LOSARTAN 50 MG TABLET PO SCH (08:34)
[2022-11-01] MEDS: ATENOLOL 50 MG TABLET PO SCH (08:38)
--- NOTE | 2022-11-01 13:12 | Internal Med Progress Note ---
SUBJECTIVE Subjective Patient information: Note initiated : 11/01/22 at 1:06 pm Service Date, if different from initiated Date: [] Patient: Joaquina Paredes a 66 y/o F admitted on 10/29/22 for N, V. Chief Complaint: [] Interval history: Ms. Paredes is a 66 year old F history of essential hypertensions, dyslipidemia, recently diagnosed urinary tract infections and bronchitis, presenting with 4- day history of nausea vomiting and general weakness. She was recently being diagnosed with urinary tract infections and bronchitis at the urgent care center and was being prescribed with Macrobid, prednisone, and azithromycin respectively. 4 days ago, she started to experience nausea, vomiting, and general body weakness. Of note, her GI symptoms of nausea vomiting onset was prior to the start of the antibiotics. She has been taking triamterene/hydroch lorothiazide for blood pressure control and she has been taking it for long time and there is no recent dosage changes. Vital signs at ED presentations within normal limits. Labs significant for serum sodium level 111, and serum potassium level 3.0. Magnesium level, serum and urine osmolality, and urine sodium level pending. Urinalysis negative leukocyte esterase and negative nitrates. Chest x-ray results pending. Admission request is called for symptomatic hyponatremia and hypokalemia. 10/30: Dr. Ledezma recs. saline lock, gave patient NaCL oral supplement, DDAVP x2, and serial chemistry to trend serum sodium level. Continue to hold Triamterene-HCTZ. Patient is feeling a lot stronger today. No more nausea vomiting or diarrhea. Good appetite. Able to keep the food down. We will continue to work with Dr. Ledezma for the management of symptomatic hyponatremia. Overall condition gu arded. Keep the patient in ICU. 10/31: Serum sodium potassium level 114 and 3.3, respectively this morning. Patient has so-so appetite and she is still very tired this morning. Continue to check with Dr. Ledezma for recommendations, it is really appreciated. Sodium chloride 2 g p.o. once, potassium chloride 40 mEq p.o. once. Repeat chemistry at noon. We will also obtain urine random sodium level to look for SIADH. Overall condition guarded. Keep the patient in ICU. 11/01L Serum sodium potassium level 121 and 3.9, respectively this morning. She is feeling well this morning with improving energy level and appetite. No nausea or vomiting. Continue to check with Dr. Ledezma for recommendations, it is really appreciated. d/c salt tab and DDAVP. Repeat serum sodium level at 1700. Overall condition guarded. 11/02 Review of Systems: denies headache/fever/chills/nausea/vomiting/chest or abdominal pain/cough/dyspnea/diarrhea. Otherwise see above. PHYSICAL EXAM General: Alert, Awake, No acute Distress Eyes/N/T: EOMI, no scleral icterus, Head/Neck: neck supple, full ROM, CV: RRR, No murmurs, Pulm: Clear b/l, no wheezing/rhonchi/rales, no respiratory distress Abd: soft, nontender, +BS x4 Ext: no clubbing/cyanosis/edema, nontender Neuro: Alert, no focal deficits, moves all extremities, , sensations intact b/l upper/lower Psychiatric: Skin: warm/dry, normal color Constitutional Vitals: Vital Signs Temp Pulse Resp BP Pulse Ox O2 Del Method 97.6 F 67 16 126/56 96 Room Air 11/01/22 12:00 11/01/22 08:00 11/01/22 08:00 11/01/22 12:00 11/01/22 10:33 11/01/22 08:00 Period Temp Pulse Resp BP Sys/Saucedo Pulse Ox O2 Del Method O2 Flow Rate Last 24 Hr 97.2 F-98.8 F 67 14-18 95-156/46-143 94-97 Room Air-Room Air Intake and Output 11/01/22 11/01/22 11/01/22 03:59 11:59 19:59 Intake Total 240 360 240 Output Total 775 100 Balance -535 260 240 Weight 71.214 kg Intake & Output: Intake & Output 11/01/22 11/01/22 11/01/22 03:59 11:59 19:59 Intake Total 240 360 240 Output Total 775 100 Balance -535 260 240 Weight 71.214 kg Intake: Oral 240 360 240 Output: Void Amount 775 100 Other: Meal Breakfast Lunch Percent of Meal Consumed 100% 100% Feeding Ability Independent Independent Urine Appearance Clear Clear Urine Color Bright Yellow Yellow Urine Odor Normal Normal OBJ DATA Labs 11/01/22 05:11 11/01/22 05:11 Labs: Abnormal Lab Results 0411/01/22 10/31/22 05:11 05:11 18:55 WBC MCHC 36.6 H Immature Gran % (Auto) 0.6 H Lymph % (Auto) [place] % (Auto) 13.0 H [place] # (Auto) 1.30 H Immature Gran # 0.06 H Sodium 121 L 121 L Chloride 91 L Anion Gap 6.0 L Glucose Osmolality Calcium 8.0 L Cortisol AM Sample 10/31/22 10/31/22 10/31/22 12:10 05:12 05:12 WBC 12.0 H MCHC 36.4 H Immature Gran % (Auto) 0.6 H Lymph % (Auto) [place] % (Auto) 13.4 H [place] # (Auto) 1.61 H Immature Gran # 0.07 H Sodium 114 L* 114 L* Chloride 84 L Anion Gap 6.0 L Glucose Osmolality Calcium 8.1 L Cortisol AM Sample 10/30/22 10/30/22 10/30/22 22:07 16:05 12:30 WBC MCHC Immature Gran % (Auto) Lymph % (Auto) [place] % (Auto) [place] # (Auto) Immature Gran # Sodium 114 L* 113 L* 114 L* Chloride Anion Gap Glucose Osmolality Calcium Cortisol AM Sample 10/30/22 10/30/22 10/30/22 05:51 05:51 05:51 WBC MCHC 36.7 H Immature Gran % (Auto) 0.7 H Lymph % (Auto) 15.0 L [place] % (Auto) [place] # (Auto) 1.23 H Immature Gran # 0.07 H Sodium 114 L* Chloride 79 L Anion Gap Glucose Osmolality Calcium 8.4 L Cortisol AM Sample 2.9 L 10/29/22 10/29/22 10/29/22 22:10 18:05 14:04 WBC MCHC Immature Gran % (Auto) Lymph % (Auto) [place] % (Auto) [place] # (Auto) Immature Gran # Sodium 109 L* 114 L* 108 L* Chloride 77 L Anion Gap Glucose 113 H Osmolality Calcium Cortisol AM Sample 10/29/22 10/29/22 10:28 10:24 WBC MCHC Immature Gran % (Auto) Lymph % (Auto) [place] % (Auto) [place] # (Auto) Immature Gran # Sodium 107 L* Chloride Anion Gap Glucose Osmolality 233 L Calcium Cortisol AM Sample Meds: Medications Acetaminophen (Acetaminophen 325 Mg Tablet) 650 mg PO Q4-6HP PRN; Protocol PRN Reason: Per Pain Protocol/Fever > 101 Last Admin: 10/31/22 20:37 Dose: 650 mg Albuterol/Ipratropium (Ipratropium/Albuterol 3 Ml Ampul.Neb) 3 ml NEB Q4HRT PRN PRN Reason: Wheezing Aspirin (Aspirin 325 Mg Enteric Coated Tablet) 325 mg PO DAILY [facility] Last Admin: 11/01/22 08:34 Dose: 325 mg Atenolol (Atenolol 50 Mg Tablet) 50 mg PO QDAY [facility] Last Admin: 11/01/22 08:38 Dose: Not Given Atorvastatin Calcium (Atorvastatin 40 Mg Tablet) 40 mg PO QHS [facility] Last Admin: 10/31/22 20:37 Dose: 40 mg Benzonatate (Benzonatate 100 Mg Capsule) 100 mg PO TIDP PRN PRN Reason: Cough Last Admin: 10/30/22 20:17 Dose: 100 mg Docusate Sodium (Docusate Sodium 100 Mg Capsule) 100 mg PO BID [facility] Last Admin: 11/01/22 08:34 Dose: Not Given Enoxaparin Sodium (Enoxaparin 40 Mg/0.4 Ml Syringe) 40 mg SQ DAILY [facility] Last Admin: 11/01/22 08:33 Dose: 40 mg Fish Oil (Fish Oil 1,000 Mg Capsule) 1,000 mg PO DAILY [facility] Last Admin: 11/01/22 08:33 Dose: 1,000 mg Guaifenesin (Guaifenesin/Dextromethorphan 5ml Ud Cup) 10 ml PO Q4HP PRN PRN Reason: Cough Last Admin: 10/31/22 20:36 Dose: 10 ml Hydralazine HCl (Hydralazine 20 Mg/Ml Vial) 10 mg IV Q4-6HP PRN PRN Reason: Hypertension Iron Carb/Multivit/Sattley/Folic Acid (Multivit,Ther Iron,Ca,Fa & Min 1 Tablet) 1 tab PO DAILY [facility] Last Admin: 11/01/22 08:34 Dose: 1 tab Lactobacillus Rhamnosus (Lactobacillus 1 Capsule) 1 cap PO QAM [facility] Last Admin: 11/01/22 08:33 Dose: 1 cap Loperamide HCl (Loperamide 2 Mg Capsule) 2 mg PO PRN PRN PRN Reason: Diarrhea Last Admin: 10/30/22 17:04 Dose: 2 mg Losartan Potassium (Losartan 50 Mg Tablet) 100 mg PO DAILY [facility] Last Admin: 11/01/22 08:34 Dose: 100 mg Metoclopramide HCl (Metoclopramide 10 Mg/2 Ml Vial) 5 mg IV Q6 PRN PRN Reason: Nausea And Vomiting Ondansetron HCl (Ondansetron 4 Mg/2 Ml Vial) 4 mg IV Q4-6HP PRN; Protocol PRN Reason: Nausea And Vomiting Prochlorperazine (Prochlorperazine 10 Mg/2 Ml Vial) 10 mg IV Q4-6HP PRN PRN Reason: Nausea And Vomiting Senna (Sennosides 1 Tablet) 1 tab PO DAILY [facility] Last Admin: 11/01/22 08:34 Dose: Not Given Sodium Chloride (0.9 % Sodium Chloride 10 Ml Syringe) 10 ml IV Q8 [facility] Last Admin: 11/01/22 06:30 Dose: 10 ml Trazodone HCl (Trazodone Hcl 50 Mg Tablet) 25 mg PO HSP PRN PRN Reason: Insomnia Last Admin: 10/30/22 20:16 Dose: 25 mg Vitamin D (Vitamin D3 25 Mcg Tablet) 50 mcg PO DAILY [facility] Last Admin: 11/01/22 08:33 Dose: 50 mcg A/P Narrative A/P Narrative: Assessment and Plans: *Symptomatic hyponatremia, severe and likely acute on chronic: likely medication associated -telemetry -Nephrology following -Stopped Triamterene/HCTZ -Zofran , Reglan, Compazine , Imodium -Saline lock -d/c salt tab, d/c DDAVP -Goal serum sodium >130 -Goal of rate of correction: 4-6 in 24 hour, serial chemistry -Repeat sodium level at 1700 *Hypokalemia: -potassium Replacement as needed -Serial BMP to trend serum potassium level and will repeat replacement as needed -Monitor magnesium and replace others as needed *h/o recent UTI: Will finish nitrofurantoin *History of recent acute bronchitis: Will finish azithromycin and prednisone *HTN/HLD: -Stop Triamterene/HCTZ -Continue Atenolol , Continue Losartan -Hydralazine 10mg IV q4-6hr PRN SBP>=180 and/or DBP>=110mmHg -Continue statin therapy *ppx: Lovenox Code status: Analyst Microbiology Lab Spent With Patient Time: Total time spent is greater than 50% in coordination of care (as documented) at patient's floor/unit and/or counseling patient: QUALITY VTE Deep Vein Thrombosis/Pulmonary Embolism Present on Admission: No
[2022-11-01] MEDS: ATORVASTATIN 40 MG TABLET PO SCH (20:25)
[2022-11-01] MEDS: guaiFENesin/DEXTROMETHORPHAN 5ML UD CUP PO PRN (20:25)
[2022-11-02] MEDS: 0.9 % SODIUM CHLORIDE 10 ML SYRINGE IV SCH ×2 (06:49→12:58)
[2022-11-02 06:59] LABS: ALT/SGPT 30 U/L (<40); AST/SGOT 29 U/L (<32); Albumin 3.2 gm/dL (3.2-5.2); Albumin/Globulin Ratio 1.1 (1.0-2.3); Alkaline Phosphatase 81 U/L (39-117); Bilirubin,Direct < 0.2 mg/dL (0-0.3); Bilirubin,Total 0.4 mg/dL (0.1-1.0); Blood Urea Nitrogen 11 mg/dL (8-23); Calcium 8.1 mg/dL (8.6-10.4); Carbon Dioxide 22 mmol/L (22-30); Chloride 97 mmol/L (96-108); Globulin 2.8 gm/dL (2.2-3.7); Glomerular Filtration Rate 75; Glucose 96 mg/dL (70-105); Lactate Dehydrogenase 251 U/L (135-225); Phosphorous 2.8 mg/dL (2.5-4.5); Triglycerides 60 mg/dL (<150); Uric Acid 4.7 mg/dL (2.5-8.0)
--- NOTE | 2022-11-02 08:29 | Internal Med Progress Note ---
SUBJECTIVE Subjective Patient information: Note initiated : 11/02/22 at 8:26 am Service Date, if different from initiated Date: [] Patient: Joaquina Paredes a 66 y/o F admitted on 10/29/22 for N, V. Chief Complaint: [] Interval history: Ms. Paredes is a 66 year old F history of essential hypertensions, dyslipidemia, recently diagnosed urinary tract infections and bronchitis, presenting with 4- day history of nausea vomiting and general weakness. She was recently being diagnosed with urinary tract infections and bronchitis at the urgent care center and was being prescribed with Macrobid, prednisone, and azithromycin respectively. 4 days ago, she started to experience nausea, vomiting, and general body weakness. Of note, her GI symptoms of nausea vomiting onset was prior to the start of the antibiotics. She has been taking triamterene/hydroch lorothiazide for blood pressure control and she has been taking it for long time and there is no recent dosage changes. Vital signs at ED presentations within normal limits. Labs significant for serum sodium level 111, and serum potassium level 3.0. Magnesium level, serum and urine osmolality, and urine sodium level pending. Urinalysis negative leukocyte esterase and negative nitrates. Chest x-ray results pending. Admission request is called for symptomatic hyponatremia and hypokalemia. 10/30: Dr. Ledezma recs. saline lock, gave patient NaCL oral supplement, DDAVP x2, and serial chemistry to trend serum sodium level. Continue to hold Triamterene-HCTZ. Patient is feeling a lot stronger today. No more nausea vomiting or diarrhea. Good appetite. Able to keep the food down. We will continue to work with Dr. Ledezma for the management of symptomatic hyponatremia. Overall condition gu arded. Keep the patient in ICU. 10/31: Serum sodium potassium level 114 and 3.3, respectively this morning. Patient has so-so appetite and she is still very tired this morning. Continue to check with Dr. Ledezma for recommendations, it is really appreciated. Sodium chloride 2 g p.o. once, potassium chloride 40 mEq p.o. once. Repeat chemistry at noon. We will also obtain urine random sodium level to look for SIADH. Overall condition guarded. Keep the patient in ICU. 11/01 Serum sodium potassium level 121 and 3.9, respectively this morning. She is feeling well this morning with improving energy level and appetite. No nausea or vomiting. Continue to check with Dr. Ledezma for recommendations, it is really appreciated. d/c salt tab and DDAVP. Repeat serum sodium level at 1700. Overall condition guarded. 11/02 Serum sodium up to 128. No nausea or vomiting. No overnight event or new complaints. Continue monitor sodium closely. Nephrology following for comanagement. Review of Systems: denies headache/fever/chills/nausea/vomiting/chest or abdominal pain/cough/dyspnea/diarrhea. Otherwise see above. PHYSICAL EXAM General: Alert, Awake, No acute Distress Eyes/N/T: EOMI, no scleral icterus, Head/Neck: neck supple, full ROM, CV: RRR, 2/6SM, Pulm: Clear b/l, no wheezing/rhonchi/rales, no respiratory distress Abd: soft, nontender, +BS x4 Ext: no clubbing/cyanosis/edema, nontender Neuro: Alert, no focal deficits, moves all extremities, , sensations intact b/l upper/lower Psychiatric: Skin: warm/dry, normal color Constitutional Vitals: Vital Signs Temp Pulse Resp BP Pulse Ox O2 Del Method O2 Flow Rate 98.1 F 66 16 139/59 97 Room Air 99 11/02/22 08:00 11/02/22 08:00 11/02/22 08:00 11/02/22 08:00 11/02/22 04:00 11/02/22 08:00 11/02/22 08:00 Period Temp Pulse Resp BP Sys/Saucedo Pulse Ox O2 Del Method O2 Flow Rate Last 24 Hr 97.5 F-99 F 62-80 16-18 118-162/51-71 96-99 Room Air-Room Air 99 Intake and Output 11/01/22 11/02/22 11/02/22 19:59 03:59 11:59 Intake Total 240 500 Output Total 100 Balance 140 500 Weight 71.758 kg Intake & Output: Intake & Output 11/01/22 11/02/22 11/02/22 19:59 03:59 11:59 Intake Total 240 500 Output Total 100 Balance 140 500 Weight 71.758 kg Intake: Oral 240 500 Output: Void Amount 100 Other: Meal Dinner Percent of Meal Consumed 100% Feeding Ability Independent Urine Appearance Clear Urine Color Yellow OBJ DATA Labs 11/01/22 05:11 11/02/22 05:26 Labs: Abnormal Lab Results 11/02/22 11/01/22 11/01/22 05:26 17:11 05:11 WBC MCHC Immature Gran % (Auto) Blaine % (Auto) Blaine # (Auto) Immature Gran # Sodium 128 L 123 L 121 L Chloride 91 L Anion Gap 6.0 L Calcium 8.1 L 8.0 L Lactate Dehydrogenase 251 H 11/01/22 10/31/22 10/31/22 05:11 18:55 12:10 WBC MCHC 36.6 H Immature Gran % (Auto) 0.6 H Blaine % (Auto) 13.0 H Blaine # (Auto) 1.30 H Immature Gran # 0.06 H Sodium 121 L 114 L* Chloride Anion Gap Calcium Lactate Dehydrogenase 10/31/22 10/31/22 10/30/22 05:12 05:12 22:07 WBC 12.0 H MCHC 36.4 H Immature Gran % (Auto) 0.6 H Blaine % (Auto) 13.4 H Blaine # (Auto) 1.61 H Immature Gran # 0.07 H Sodium 114 L* 114 L* Chloride 84 L Anion Gap 6.0 L Calcium 8.1 L Lactate Dehydrogenase 10/30/22 10/30/22 16:05 12:30 WBC MCHC Immature Gran % (Auto) Blaine % (Auto) Blaine # (Auto) Immature Gran # Sodium 113 L* 114 L* Chloride Anion Gap Calcium Lactate Dehydrogenase Meds: Medications Acetaminophen (Acetaminophen 325 Mg Tablet) 650 mg PO Q4-6HP PRN; Protocol PRN Reason: Per Pain Protocol/Fever > 101 Last Admin: 10/31/22 20:37 Dose: 650 mg Albuterol/Ipratropium (Ipratropium/Albuterol 3 Ml Ampul.Neb) 3 ml NEB Q4HRT PRN PRN Reason: Wheezing Aspirin (Aspirin 325 Mg Enteric Coated Tablet) 325 mg PO DAILY [facility] Last Admin: 11/01/22 08:34 Dose: 325 mg Atenolol (Atenolol 50 Mg Tablet) 50 mg PO QDAY [facility] Last Admin: 11/01/22 08:38 Dose: Not Given Atorvastatin Calcium (Atorvastatin 40 Mg Tablet) 40 mg PO QHS [facility] Last Admin: 11/01/22 20:25 Dose: 40 mg Benzonatate (Benzonatate 100 Mg Capsule) 100 mg PO TIDP PRN PRN Reason: Cough Last Admin: 10/30/22 20:17 Dose: 100 mg Docusate Sodium (Docusate Sodium 100 Mg Capsule) 100 mg PO BID [facility] Last Admin: 11/01/22 20:25 Dose: Not Given Enoxaparin Sodium (Enoxaparin 40 Mg/0.4 Ml Syringe) 40 mg SQ DAILY [facility] Last Admin: 11/01/22 08:33 Dose: 40 mg Fish Oil (Fish Oil 1,000 Mg Capsule) 1,000 mg PO DAILY [facility] Last Admin: 11/01/22 08:33 Dose: 1,000 mg Guaifenesin (Guaifenesin/Dextromethorphan 5ml Ud Cup) 10 ml PO Q4HP PRN PRN Reason: Cough Last Admin: 11/01/22 20:25 Dose: 10 ml Hydralazine HCl (Hydralazine 20 Mg/Ml Vial) 10 mg IV Q4-6HP PRN PRN Reason: Hypertension Iron Carb/Multivit/Mine Car Mechanic/Folic Acid (Multivit,Ther Iron,Ca,Fa & Min 1 Tablet) 1 tab PO DAILY [facility] Last Admin: 11/01/22 08:34 Dose: 1 tab Lactobacillus Rhamnosus (Lactobacillus 1 Capsule) 1 cap PO QAM [facility] Last Admin: 11/01/22 08:33 Dose: 1 cap Loperamide HCl (Loperamide 2 Mg Capsule) 2 mg PO PRN PRN PRN Reason: Diarrhea Last Admin: 10/30/22 17:04 Dose: 2 mg Losartan Potassium (Losartan 50 Mg Tablet) 100 mg PO DAILY [facility] Last Admin: 11/01/22 08:34 Dose: 100 mg Metoclopramide HCl (Metoclopramide 10 Mg/2 Ml Vial) 5 mg IV Q6 PRN PRN Reason: Nausea And Vomiting Ondansetron HCl (Ondansetron 4 Mg/2 Ml Vial) 4 mg IV Q4-6HP PRN; Protocol PRN Reason: Nausea And Vomiting Prochlorperazine (Prochlorperazine 10 Mg/2 Ml Vial) 10 mg IV Q4-6HP PRN PRN Reason: Nausea And Vomiting Senna (Sennosides 1 Tablet) 1 tab PO DAILY [facility] Last Admin: 11/01/22 08:34 Dose: Not Given Sodium Chloride (0.9 % Sodium Chloride 10 Ml Syringe) 10 ml IV Q8 [facility] Last Admin: 11/02/22 06:49 Dose: Not Given Trazodone HCl (Trazodone Hcl 50 Mg Tablet) 25 mg PO HSP PRN PRN Reason: Insomnia Last Admin: 10/30/22 20:16 Dose: 25 mg Vitamin D (Vitamin D3 25 Mcg Tablet) 50 mcg PO DAILY [facility] Last Admin: 11/01/22 08:33 Dose: 50 mcg A/P Narrative A/P Narrative: Assessment and Plans: *Symptomatic hyponatremia, severe and likely acute on chronic: likely medication associated -telemetry -Nephrology following -Stopped Triamterene/HCTZ -Zofran , Reglan, Compazine , Imodium -Saline lock -d/c salt tab, d/c DDAVP -Goal serum sodium >130 -serial chemistry *Hypokalemia: -potassium Replacement as needed -Serial BMP to trend serum potassium level and will repeat replacement as needed -Monitor magnesium and replace others as needed *h/o recent UTI: was on nitrofurantoin *History of recent acute bronchitis: was on azithromycin and prednisone *HTN/HLD: -Stop Triamterene/HCTZ -Continue Atenolol , Continue Losartan -Hydralazine 10mg IV q4-6hr PRN SBP>=180 and/or DBP>=110mmHg -Continue statin therapy *ppx: 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
[2022-11-02] MEDS: ATENOLOL 50 MG TABLET PO SCH (09:30)
[2022-11-02] MEDS: ASPIRIN 325 MG ENTERIC COATED TABLET PO SCH (10:35)
[2022-11-02] MEDS: ENOXAPARIN 40 MG/0.4 ML SYRINGE SQ SCH (10:35)
[2022-11-02] MEDS: MULTIVIT,THER IRON,CA,FA & MIN 1 TABLET PO SCH (10:36)
[2022-11-02] MEDS: FISH OIL 1,000 MG CAPSULE PO SCH (10:36)
[2022-11-02] MEDS: LOSARTAN 50 MG TABLET PO SCH (10:36)
[2022-11-02] MEDS: VITAMIN D3 25 MCG TABLET PO SCH (10:38)
[2022-11-02] MEDS: LACTOBACILLUS 1 CAPSULE PO SCH (10:39)
[2022-11-02] MEDS: DOCUSATE SODIUM 100 MG CAPSULE PO SCH (10:39)
[2022-11-02] MEDS: SENNOSIDES 1 TABLET PO SCH (10:39)
--- NOTE | 2022-11-02 11:07 | Discharge Summary ---
Discharge Provider Provider IMPORTANT FOLLOW-UP INFORMATION FOR PCP: Patient information: Note initiated : 11/02/22 at 11:05 am Service Date, if different from initiated Date: [] Patient: Joaquina Paredes 66 y/o F admitted on 10/29/22 for N, V. Chief Complaint: [] Date of admission: 10/29/22 13:35 Discharge date: 11/02/22 Primary care physician: Jessica Lau Consults: 10/29/22 Consult to Physician [CONS] Stat Comment: Consulting Provider: Richard Gaytan Reason For Exam: Physician to Consult 10/29/22 13:51 Consult to Physician [CONS] Stat Comment: Consulting Provider: Santiago Ledezma Reason For Exam: Physician to Consult COURSE Hospital Course Hospital course: Ms. Paredes is a 66 year old F history of essential hypertensions, dyslipidemia, recently diagnosed urinary tract infections and bronchitis, presenting with 4- day history of nausea vomiting and general weakness. She was recently being diagnosed with urinary tract infections and bronchitis at the urgent care center and was being prescribed with Macrobid, prednisone, and azithromycin respectively. 4 days ago, she started to experience nausea, vomiting, and general body weakness. Of note, her GI symptoms of nausea vomiting onset was prior to the start of the antibiotics. She has been taking triamterene/hydrochlorothiazide for blood pressure control and she has been taking it for long time and there is no recent dosage changes. Vital signs at ED presentations within normal limits. Labs significant for serum sodium level 111, and serum potassium level 3.0. Magnesium level, serum and urine osmolality, and urine sodium level pending. Urinalysis negative leukocyte esterase and negative nitrates. Chest x-ray results pending. Admission request is called for symptomatic hyponatremia and hypokalemia. 10/30: Dr. Ledezma recs. saline lock, gave patient NaCL oral supplement, DDAVP x2, and serial chemistry to trend serum sodium level. Continue to hold Triamterene- HCTZ. Patient is feeling a lot stronger today. No more nausea vomiting or diarrhea. Good appetite. Able to keep the food down. We will continue to work with Dr. Ledezma for the management of symptomatic hyponatremia. Overall condition guarded. Keep the patient in ICU. 10/31: Serum sodium potassium level 114 and 3.3, respectively this morning. Patient has so-so appetite and she is still very tired this morning. Continue to check with Dr. Ledezma for recommendations, it is really appreciated. Sodium chloride 2 g p.o. once, potassium chloride 40 mEq p.o. once. Repeat chemistry at noon. We will also obtain urine random sodium level to look for SIADH. Overall condition guarded. Keep the patient in ICU. 11/01 Serum sodium potassium level 121 and 3.9, respectively this morning. She is feeling well this morning with improving energy level and appetite. No nausea or vomiting. Continue to check with Dr. Ledezma for recommendations, it is really appreciated. d/c salt tab and DDAVP. Repeat serum sodium level at 1700. Overall condition guarded. 11/02 Serum sodium up to 128. No nausea or vomiting. No overnight event or new complaints. Continue monitor sodium closely. Nephrology following for comanagement. Okay to discharge per nephrology. Recommends to continue to hold the triamterene and hydrochlorothiazide. Continue home ARB. Assessment and Plans: *Symptomatic hyponatremia, severe and likely acute on chronic: likely medication associated -Stopped Triamterene/HCTZ *Hypokalemia: *h/o recent UTI: was on nitrofurantoin *History of recent acute bronchitis: was on azithromycin and prednisone *HTN/HLD: Discharge diagnosis: Hyponatremia severe Secondary discharge diagnosis: Hypokalemia recent UTI history of recent acute bronchitis hypertension upper lipidemia Time Spent with Patient Time attestation: Total time spent providing and/or coordinating discharge services: Time spent: Greater than 30 minutes EXAM Constitutional Vitals: Temp Pulse Resp BP Pulse Ox O2 Del Method O2 Flow Rate 98.1 F 66 16 139/59 97 Room Air 99 11/02/22 08:00 11/02/22 08:00 11/02/22 08:00 11/02/22 08:00 11/02/22 04:00 11/02/22 08:00 11/02/22 08:00 Discharge Data Data Completed and Pending Labs on day of discharge: Labs from last 24 hours 11/02/22 11/01/22 05:26 17:11 Sodium 128 L 123 L Potassium 4.0 Chloride 97 Carbon Dioxide 22 Anion Gap 9.0 BUN 11 Creatinine 0.8 GFR Calculation 75 Glucose 96 Uric Acid 4.7 Calcium 8.1 L Phosphorus 2.8 Magnesium 2.1 Total Bilirubin 0.4 Direct Bilirubin < 0.2 GGT 24 AST 29 ALT 30 Alkaline Phosphatase 81 Lactate Dehydrogenase 251 H Total Protein 6.0 Albumin 3.2 Globulin 2.8 Albumin/Globulin Ratio 1.1 Triglycerides 60 Discharge Plan Patient/Caregiver Discharge Instructions Activity: increase activity as tolerated Diet: Regular Diet Instructions: Hyponatremia (ED) Prescriptions: Continued atenolol 50 mg tablet 50 mg PO QDAY atorvastatin 40 mg tablet 40 mg PO QHS losartan 100 mg tablet 100 mg PO QDAY omega 2-lsl-guo-fish oil [Fish Oil] 60-90-500 mg capsule 1 cap PO QDAY aspirin 325 mg tablet 325 mg PO QDAY cholecalciferol (vitamin D3) 50 mcg (2,000 unit) capsule 50 mcg PO QDAY Women's Multivitamin Gummies 200 mcg tablet,chewable 2 tab PO QDAY prednisone 10 mg tablet See Rx Instructions PO ONCE Qty: 15 0RF Rx Instructions: Take 50 mg today, 40 mg tomorrow, 30 mg third day 20 mg the fourth day and 10 mg the fifth day. Daily Probiotic 2.5 billion cell Capsule 1 cap PO QAM Discontinued triamterene-hydrochlorothiazid 37.5-25 mg tablet 1 tab PO QDAY azithromycin 250 mg tablet See Rx Instructions PO Q24H Qty: 6 0RF Rx Instructions: Take 500mg today and 250mg daily for the next four days PO Q24H nitrofurantoin monohyd/m-cryst [Macrobid] 100 mg capsule 1 cap PO Q12H 5 Days Qty: 10 0RF nitrofurantoin monohyd/m-cryst 100 mg capsule 1 cap PO BID Follow Up Plan Follow up with: Jessica Lau MD [Primary Care Provider] - Patient Disposition: Home, Self-Care Plan of Treatment: STOP THIAZIDE DIURETIC 1.5 quart per day total fluid intake Follow up with PCP No renal follow up needed as cause, treatment and clinical course if improving. Prognosis: Fair Overall status at discharge: patient is progressing back to baseline Discharge Orders: Discharge Order (Routine); Ordered 11/02/22 Ordered By: aTco Vasques [facility] VTE Deep Vein Thrombosis/Pulmonary Embolism Present on Admission: No
--- NOTE | 2022-11-02 13:32 | Nephrology Progress Note ---
SUBJECTIVE Subjective Patient information: Note initiated : 11/02/22 at 1:23 pm Service Date, if different from initiated Date: [] Patient: Joaquina Paredes 66 y/o F admitted on 10/29/22 for N, V. Chief Complaint: [low sodium] Principal diagnosis: low sodium Interval history: Improving serum Na daily Pertinent ROS: no diarrhea Thiazide stopped Recent pulmonary infection may have triggered SIADH + Thiazide related hyponatremia but no delta MS upon arrival to ED so slow onset Additional PMFSH (Level 3 Only): Nothing new Constitutional Vitals: Vital Signs Temp Pulse Resp BP Pulse Ox O2 Del Method O2 Flow Rate 36.7 C 66 16 139/59 97 Room Air 99 11/02/22 08:00 11/02/22 08:00 11/02/22 08:00 11/02/22 08:00 11/02/22 04:00 11/02/22 08:00 11/02/22 08:00 Period Temp Pulse Resp BP Sys/Saucedo Pulse Ox O2 Del Method O2 Flow Rate Last 24 Hr 36.4 C-37.2 C 62-80 16-18 119-162/51-71 96-99 Room Air-Room Air 99 Intake and Output 11/02/22 11/02/22 11/02/22 03:59 11:59 19:59 Intake Total 500 400 Output Total 400 Balance 500 0 Intake & Output: Intake & Output 11/02/22 11/02/22 11/02/22 03:59 11:59 19:59 Intake Total 500 400 Output Total 400 Balance 500 0 Intake: Oral 500 400 Output: Void Amount 400 Other: Meal Breakfast Percent of Meal Consumed 100% Feeding Ability Independent General appearance: cooperative and no acute distress Head Head exam: Present normal inspection Eye Eye exam: Present normal appearance ENT ENT exam: Present mucous membranes moist Respiratory Respiratory exam: Absent respiratory distress Cardiovascular Cardiovascular exam: Present normal rate and rhythm GI/Abdominal GI/Abdominal exam: Present soft; Absent tenderness Extremities Exam Extremities exam: Absent joint swelling or pedal edema Neurological Exam Neurological exam: Present alert and oriented X3 Psychiatric Psychiatric exam: Present normal affect and normal mood Skin Skin exam: Present warm; Absent rash A/P Assessment and plan (1) Acute hyponatremia: Assessment and plan: Thiazide induced Status: Acute (2) Hypokalemia: Assessment and plan: Thiazide induced Status: Acute Narrative A/P Narrative: Thiazide induced hyponatremia Plan of Treatment: STOP THIAZIDE DIURETIC 1.5 quart per day total fluid intake Follow up with PCP No renal follow up needed as cause, treatment and clinical course if improving. Time Spent With Patient Time: Total time spent is greater than 50% in coordination of care (as documented) at patient's floor/unit and/or counseling patient:
--- NOTE | 2022-11-02 19:19 | EKG ---
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
== END 2022-11-02 15:30 | disposition home or self-care (01) | DRG 641 ==
LOC: ED 09:10 → ICU 13:35 → MEDSUR 11-01 19:56
PROVIDERS: ADMIT Internal Medicine; ATTEND Internal Medicine